=== PATIENT | male | born 1990 | race Caucasian/White ===

== ENCOUNTER → 2019-01-18 | Outpatient (CLI) | payer OTHER ==
--- NOTE | 2019-01-18 15:11 | XR ---
EXAMINATION TYPE: XR shoulder complete RT DATE OF EXAM: 01/18/2019 CLINICAL HISTORY: Pain after injury. TECHNIQUE: Three views of the right shoulder are obtained. COMPARISON: None. FINDINGS: There is no acute fracture/dislocation evident in the right shoulder. The acromioclavicul ar and glenohumeral joint spaces appear within normal limits. The visualized ribs are intact and unr emarkable. IMPRESSION: There is no acute fracture or dislocation in the right shoulder.
== END | disposition home or self-care (01) ==
LOC: RADXRMAIN 14:32
PROVIDERS: ATTEND Emergency Medicine
DX: S46.011A Strain of muscle(s) and tendon(s) of the rotator cuff of right shoulder, initial encounter (principal)

== ENCOUNTER 2021-10-12 04:17 | Emergency (ER) | payer BC ==
[2021-10-12 04:32] VITALS: BP 129/85; PULSE 95; RESP 18; TEMP 98
[2021-10-12] MEDS ORDERED: LIDOCAINE 1% INJ 10MG/ML (5 ML VIAL-PF) SQ STA (05:03)
--- NOTE | 2021-10-12 05:04 | ED ---
Wound/Laceration HPI - General Chief Complaint: Wound/Laceration Stated Complaint: Head injury Time Seen by Provider: 10/12/21 04:57 Source: patient Mode of arrival: ambulatory - History of Present Illness Initial Comments: 's patient is 30-year-old man who presents with complaint of laceration to the left brow. The patient states she had been drinking earlier. He lost his ba anderson and fell. His brow struck the edge of a chair resulting in laceration. He states that his tetanus status is up-to-date. He is not having any symptoms related to fall. No headache, loss consciousness, change in vision or other symptoms. Onset/Timin -: hour(s) Location: face Place: other Patient Tetanus UTD: Yes Context: accidental Associated Symptoms: none - Related Data Allergies Allergy/AdvReac Type Severity Reaction Status Date / Time No Known Allergies Allergy Verified 10/12/21 04:32 Review of Systems ROS Statement: Those systems with pertinent positive or pertinent negative responses have been documented in the HPI. ROS Other: All systems not noted in ROS Statement are negative. Constitutional: Denies: fever Eyes: Denies: eye pain, vision change ENT: Denies: epistaxis Gastrointestinal: Denies: nausea, vomiting Neurological: Denies: headache, weakness, numbness, paresthesias Hematological/Lymphatic: Denies: easy bleeding Past Medical History Past Medical History: No Reported History History of Any Multi-Drug Resistant Organisms: None Reported Past Surgical History: No Surgical Hx Reported Past Psychological History: ADD/ADHD Smoking Status: Current every day smoker Past Alcohol Use History: Occasional Past Drug Use History: None Reported General Exam General appearance: alert, in no apparent distress Head exam: Present: atraumatic, normocephalic Eye exam: Present: PERRL, EOMI. Absent: scleral icterus, conjunctival injection, nystagmus, periorbital swelling, periorbital tenderness Pupils: Present: other (Laceration to left brow proximally 4 cm.) Neck exam: Present: normal inspection, full ROM. Absent: tenderness Neurological exam: Present: alert, oriented X3, CN II-XII intact, normal gait. Absent: motor sensory deficit Skin exam: Present: warm, dry, normal color. Absent: rash Course Vital Signs 10/12/21 04:23 Temperature 98 F Pulse Rate 95 Respiratory 18 Rate Blood Pressure 129/85 O2 Sat by Pulse 99 Oximetry Procedures - Laceration Laceration #1 Consent Obtained: verbal consent Indication: laceration Site: face Size (cm): 4 Description: linear Depth: simple, single layer Anesthetic Used: lidocaine 1% Anesthesia Technique: local infiltration Amount (mls): 3 Type of Sutures: nylon Size of Sutures: 6-0 Number of Sutures: 5 Technique: simple, interrupted Patient Tolerated Procedure: well, no complications Disposition Clinical Impression: Laceration Disposition: HOME SELF-CARE Condition: Good Instructions (If sedation given, give patient instructions): Laceration (ED) Is patient prescribed a controlled substance at d/c from ED?: No Referrals: Jevon Benson MD [Primary Care Provider] - 1-2 days
[2021-10-12] MEDS ORDERED: BACITRACIN OINT 1 EACH PACKET TOPICAL ONE (05:31)
== END 2021-10-12 05:47 | disposition home or self-care (01) ==
LOC: EC 04:17
DX: S01.112A Laceration without foreign body of left eyelid and periocular area, initial encounter (principal); F17.200 Nicotine dependence, unspecified, uncomplicated; W01.190A Fall on same level from slipping, tripping and stumbling with subsequent striking against furniture, initial encounter
CPT/HCPCS: 12013; 99283; J2001

== ENCOUNTER 2023-06-04 15:13 | Emergency (ER) | payer OTHER, BC ==
--- NOTE | 2023-06-04 15:37 | ED ---
General Adult HPI - General Source: patient, RN notes reviewed Mode of arrival: ambulatory Limitations: no limitations <Tereso Aden - Last Filed: 06/04/23 15:36> - General Source: patient, RN notes reviewed, old records reviewed <Carlos Gilbert - Last Filed: 06/04/23 23:54> - General Stated complaint: back pain-[facility] Time Seen by Provider: 06/04/23 15:36 - History of Present Illness Initial comments: 32-year-old male presents emergency Department which low back pain. Patient was sent over from [facility] for evaluation of his back pain. He states his started after twisting and moving some material at work. Patient states his pain areas on his left leg. Patient states that he has no loss control of bowel, bladder and incontinence or retention. Patient denies any prior history of back pain. (Tereso Aden) Patient was a 32-year-old male presents from his apartment when her back pain. Complaining of left lower back pain, with radiation down the posterior aspect of the left leg. Endorses intermittent numbness as well as what appears to be dropfoot syndrome on the left side. Symptoms have been more prominent over the last 3-4 days. He lifted something that was 200 pounds at work 3 days ago and has had symptoms since. Denies any saddle anesthesias or paresthesias. Denies any paralysis of lower extremity is. Denies any urinary or bowel incontinence or retention. His no other acute complaints. Presents for further evaluation. (Carlos Gilbert) - Related Data Allergies Allergy/AdvReac Type Severity Reaction Status Date / Time No Known Allergies Allergy Verified 06/04/23 15:43 Review of Systems ROS Other: All systems not noted in ROS Statement are negative. <Tereso Aden - Last Filed: 06/04/23 15:36> ROS Other: All systems not noted in ROS Statement are negative. <Carlos Gilbert - Last Filed: 06/04/23 23:54> ROS Statement: Those systems with pertinent positive or pertinent negative responses have been documented in the HPI. Review of Systems: CONST: Denies fever EYES: Denies blurry vision ENT: Denies nasal congestion C/V: Denies Chest pain RESP: Denies shortness of breath GI: Denies abdominal pain : Denies dysuria SKIN: Denies rash. MSK: Endorses Back pain NEURO: Denies headache (Carlos Gilbert) Past Medical History Past Medical History: No Reported History History of Any Multi-Drug Resistant Organisms: None Reported Past Surgical History: No Surgical Hx Reported Past Psychological History: ADD/ADHD Smoking Status: Current every day smoker Past Alcohol Use History: Occasional Past Drug Use History: None Reported <Tereso Aden - Last Filed: 06/04/23 15:36> General Exam <Tereso Aden - Last Filed: 06/04/23 15:36> <Carlos Gilbert - Last Filed: 06/04/23 23:54> - General Exam Comments Initial Comments: Visual Physical Exam Vital signs reviewed General: Well-appearing, nontoxic, no acute distress. Head: Normocephalic, atraumatic Eyes: PERRLA, EOMI ENT: Airway patent Chest: Nonlabored breathing Skin: No visual rash, normal skin tone Neuro: Alert and oriented 3 Musculoskeletal: No gross abnormalities (Tereso Aden) General: Appears in no acute distress. HEAD: Normal with no signs of head trauma. EYES: PERRLA, EOMI, conjunctiva normal, no discharge. ENT: Hearing grossly intact, normal oropharynx. RESPIRATORY: Clear breath sounds bilaterally. No wheezes, rales, or rhonchi. C/V: Regular rate and rhythm. S1 and S2 auscultated, peripheral pulses 2+ and intact throughout ABD: Abd is soft, nontender, nondistended EXT: Normal range of motion, no obvious deformity. Mild tenderness palpation of the left lower lumbar paraspinal muscles. No focal midline lumbar, thoracic, cervical spine tenderness to palpation. SKIN: No rashes or lesions observed on exposed skin. NEURO: Alert and oriented x 4. Cranial nerves II-XII intact. Patient does have dropfoot of the left lower extremity but no obvious focal findings otherwise. (Carlos Gilbert) Course Vital Signs 06/04/23 15:38 Temperature 97.6 F Pulse Rate 88 Respiratory 17 Rate Blood Pressure 139/83 O2 Sat by Pulse 98 Oximetry Medical Decision Making <Tereso Aden - Last Filed: 06/04/23 15:36> <Carlos Gilbert - Last Filed: 06/04/23 23:54> - Medical Decision Making I completed the quick note portion of this chart signed Tereso Aden PA-C (Tereso Aden) Was pt. sent in by a medical professional or institution (TOM Jarrell, DIRECTOR OF GOVERNMENT SALES, urgent care, hospital, or usp...) When possible be specific @ -No Did you speak to anyone other than the patient for history (EMS, parent, family, police, friend...)? What history was obtained from this source @ -No Did you review nursing and triage notes (agree or disagree)? Why? @ -I reviewed and agree with nursing and triage notes Were old charts reviewed (outside hosp., previous admission, EMS record, old EKG, old radiological studies, urgent care reports/EKG's, usp records)? Report findings @ -No old charts were reviewed Differential Diagnosis (chest pain, altered mental status, abdominal pain women, abdominal pain men, vaginal bleeding, weakness, fever, dyspnea, syncope, headache, dizziness, GI bleed, back pain, seizure, CVA, palpatations, mental health, musculoskeletal)? @ -Differential Musculoskeletal Muscular strain, contusion, ligament sprain, fracture, arthritis, septic arthritis, bursitis, cellulitis, muscle spasm, nerve compression, DVT, arterial occlusion, herpes zoster, electrolyte abnormality, tumor.... This is not meant to be in all inclusive list EKG interpreted by me (3pts min.). @ -None done X-rays interpreted by me (1pt min.). @ -None done CT interpreted by me (1pt min.). @ -CT of the lumbar spine reveals degenerative changes with left neural foraminal stenosis and right neural foraminal stenosis. Radiology also states there is some canal stenosis as well. U/S interpreted by me (1pt. min.). @ -None done What testing was considered but not performed or refused? (CT, X-rays, U/S, labs)? Why? @ -None What meds were considered but not given or refused? Why? @ -Offered analgesia medications: Patient did accept a dose of steroid and Naprosyn. Did you discuss the management of the patient with other professionals (professionals i.e. TOM Jarrell, DIRECTOR OF GOVERNMENT SALES, lab, RT, psych nurse, long term care social worker, mercantile agent, teacher, bomb squad officer, case specialist)? Give summary @ -No Was smoking cessation discussed for >3mins.? @ -No Was critical care preformed (if so, how long)? @ -No Were there social determinants of health that impacted care today? How? (Homelessness, low income, unemployed, alcoholism, drug addiction, transportation, low edu. Level, literacy, decrease access to med. care, assisted, rehab)? @ -No Was there de-escalation of care discussed even if they declined (Discuss DNR or withdrawal of care, Hospice)? DNR status @ -No What co-morbidities impacted this encounter? (DM, HTN, Smoking, COPD, CAD, Cancer, CVA, ARF, Chemo, Hep., AIDS, mental health diagnosis, sleep apnea, morbid obesity)? @ -None Was patient admitted / discharged? Hospital course, mention meds given and route, prescriptions, significant lab abnormalities, going to OR and other pertinent info. @ -Based on the patient's presentation and physical exam, presents with back pain. Onset at work after lifting a heavy object. Patient does have dropfoot on left lower extremity. Symptoms is been present for multiple days. No red flag symptoms suggestive of cauda equina. I'm concerned for possible peripheral nerve compression. I did recommend CT imaging of the lumbar spine which he accepted. He will see if the dose of steroid and a pain med for pain. He was in agreement this plan. Vital signs are within acceptable limits. CT imaging does show areas of foraminal stenosis suggestive of peripheral nerve compression. I did discuss this with the patient. Recommended follow-up with neurology or the dropfoot. He was in agreement this plan. He will be given a work note. He was given neurology follow-up. He was in agreement with this plan. I instructed the patient to follow up with their PCP in the next 1-3 days. I provided contact information for follow up with neurology. I explained that the patient should return to the emergency department if they experience any worsening symptoms. Strict return precautions were discussed with the patient. The patient expressed understanding of these instructions. I answered all questions that the patient had. The patient was discharged home in good condition with their prescriptions and follow up information. Undiagnosed new problem with uncertain prognosis? @ -No Drug Therapy requiring intensive monitoring for toxicity (Heparin, Nitro, Insulin, Cardizem)? @ -No Were any procedures done? @ -No Diagnosis/symptom? @ -Pain, left foot drop, left sciatica Acute, or Chronic, or Acute on Chronic? @ -Acute Uncomplicated (without systemic symptoms) or Complicated (systemic symptoms)? @ -Complicated Side effects of treatment? @ -No Exacerbation, Progression, or Severe Exacerbation? @ -No Poses a threat to life or bodily function? How? (Chest pain, USA, CT, pneumonia, PE, COPD, DKA, ARF, appy, cholecystitis, CVA, Diverticulitis, Homicidal, Suicidal, threat to staff... and all critical care pts) @ -No (Carlos Gilbert) Disposition <Tereso Aden - Last Filed: 06/04/23 15:36> Is patient prescribed a controlled substance at d/c from ED?: No Time of Disposition: 19:41 <Carlos Gilbert - Last Filed: 06/04/23 23:54> Clinical Impression: Back pain, Sciatica, Foot drop, left Disposition: HOME SELF-CARE Condition: Fair Instructions (If sedation given, give patient instructions): Acute Low Back Pain (ED) Referrals: Jevon Benson MD [Primary Care Provider] - 1-2 days Jayne Coffman MD [REFERRING] - 1-2 days
[2023-06-04 15:46] VITALS: BP 139/83; PULSE 88; RESP 17; TEMP 97.6
[2023-06-04] MEDS ORDERED: NAPROXEN 250 MG TAB PO STA (16:51)
[2023-06-04] MEDS ORDERED: dexAMETHasone 2 MG TAB PO STA (16:51)
--- NOTE | 2023-06-04 19:12 | CT ---
EXAMINATION TYPE: CT lumbar spine wo con CT DLP: 1004.2 mGycm, Automated exposure control for dose reduction was used. DATE OF EXAM: 06/04/2023 5:13 PM COMPARISON: . CLINICAL INDICATION:Male, 32 years old with history of lumbar pain, left drop foot, sciatica left; PH H, back pain following heavy lifting TECHNIQUE: Multiple axial images were obtained from the midportion of T11 through the sacroiliac santos nts. Soft tissue and bone windows in coronal and sagittal planes were obtained and reviewed. 3-D ref ormats of the bones were created on a separate workstation and submitted for review. Contrast used: mL of , none. Oral contrast used: none. FINDINGS: Osseous mineralization appears appropriate. There are 5 lumbar-type vertebral bodies. Straightening o f the normal lumbar lordosis without significant listhesis. Mild levoscoliosis of the lumbar spine ce ntered at L2. Vertebral body heights are preserved, there is no evidence of acute fracture lucency. No lytic/blasti c lesions. There is generally mild degenerative change of the lumbar spine, greatest in the lower lumbar region as below. Spinal canal and contents are not well assessed by a noncontrast CT, and if there is remain ing concern could be further evaluated with nonemergent MRI. At L1-L2, there is small posterior disc bulge. Minimal facet arthrosis. Spinal canal and neural dawn fallon appear patent. At L2-L3, there is small posterior disc bulge. Minimal facet arthrosis. Spinal canal and neural dawn fallon appear patent. At L3-L4, there is mild to moderate posterior disc osteophyte complex, mild facet arthrosis and ligam entum flavum thickening resulting in mild canal and neural foraminal stenoses. At L4-L5, there is mild to moderate posterior disc osteophyte complex, mild to moderate facet arthros is and ligamentum flavum thickening resulting in mild to moderate canal and neural foraminal stenoses . At L5-S1, there is disc space narrowing with vacuum disc phenomenon and a moderate size posterior dis c osteophyte complex with somewhat beaklike configuration of osteophytic bone ending posteriorly cent rally into the canal and there is a ridge of osteophytic bone which extends into the left neural fora men. In combination with mild/moderate facet arthropathy, there is moderate canal stenosis, moderate to severe left neural foraminal stenosis, and moderate right neural foraminal stenosis. Other: Visualized paraspinous soft tissues show no discrete abnormality. Visualized upper sacrum is i ntact. Minimal degenerative change of the left SI joint with early osseous bridge formation. IMPRESSION: 1. No acute osseous abnormality in the lumbar spine. 2. Generally mild degenerative changes of the lumbar spine, however greatest at L5-S1 where there is moderate canal stenosis, moderate to severe left neural foraminal stenosis, and moderate right neura l foraminal stenosis.
== END 2023-06-04 19:51 | disposition home or self-care (01) ==
LOC: EC 15:13
DX: M21.372 Foot drop, left foot (principal); M54.42 Lumbago with sciatica, left side; F17.200 Nicotine dependence, unspecified, uncomplicated
CPT/HCPCS: 72131; 99283; J8540

== ENCOUNTER → 2023-06-22 | Outpatient (CLI) | payer OTHER ==
--- NOTE | 2023-06-22 17:17 | MR ---
EXAMINATION TYPE: MR lumbar spine wo con DATE OF EXAM: 06/22/2023 11:51 AM CLINICAL INDICATION:Male, 32 years old with history of M54.50; PHH, Lower back pain, LLE radiculopath y. Lifting injury. COMPARISON: None TECHNIQUE: Multi planar, multi sequence imaging was performed utilizing: T1-weighted, T2-weighted, a nd turbo inversion recovery imaging of the lumbar spine. IV Contrast: None (None if empty) FINDINGS: Alignment: The lumbar vertebral bodies have preserved heights and alignment. Cord: The conus medullaris and the distal spinal cord appear unremarkable with regards to their signa l intensity and morphology. Bones/Discs: Mild degeneration changes throughout the spine with osteophyte formation and facet joint arthropathy. Intervertebral disc signal is maintained. T12-L1: No evidence of significant spinal canal stenosis or neural foraminal stenosis. L1-L2: No evidence of significant spinal canal stenosis. Facet joint arthropathy mild bilateral neura l foraminal stenosis. L2-L3: No evidence of significant spinal canal stenosis. Facet joint arthropathy mild bilateral neura l foraminal stenosis. L3-L4: Disc bulge and facet joint arthropathy result in mild spinal canal and moderate bilateral neur al foraminal stenosis. L4-L5: Disc bulge and facet joint arthropathy result in mild spinal canal and moderate to severe bila teral neural foraminal stenosis. Left exiting nerve slightly displaced. Facet joint on series 201 flavio ge 4 L5-S1: The disc is rounded posterior morphology without significant spinal canal stenosis. Facet join t arthropathy with severe bilateral neural foraminal stenosis. No significant spinal canal or neural foraminal stenosis in the remainder of the visualized levels. Other findings: None. IMPRESSION: No definitive evidence of disc herniation or significant spinal canal stenosis. Multilevel disc degeneration with associated osteoarthritic changes. Neural foraminal stenosis worse at L4-L5 and L5-S1 with severe L5-S1 and moderate to severe L4-L5. The L4 vertebral 5 exiting nerve a nd slightly displaced the neural foramen.
== END | disposition home or self-care (01) ==
LOC: RADMRIMAIN 11:00
PROVIDERS: ATTEND Orthopaedic Surgery
DX: M51.16 Intervertebral disc disorders with radiculopathy, lumbar region (principal); M47.26 Other spondylosis with radiculopathy, lumbar region; M99.73 Connective tissue and disc stenosis of intervertebral foramina of lumbar region
CPT/HCPCS: 72148

== ENCOUNTER → 2023-09-14 | Outpatient (CLI) | payer BC | END | disposition home or self-care (01) | LOC: LABPAT 08:53 | PROVIDERS: ATTEND Orthopaedic Surgery | DX: Z01.812 Encounter for preprocedural laboratory examination (principal); Z22.322 Carrier or suspected carrier of Methicillin resistant Staphylococcus aureus; M48.061 Spinal stenosis, lumbar region without neurogenic claudication; M54.16 Radiculopathy, lumbar region | CPT/HCPCS: 36415; 86850; 86900; 86901; 87070 ==

== ENCOUNTER → 2023-09-16 | Outpatient (CLI) | payer OTHER ==
--- NOTE | 2023-09-16 12:06 | XR ---
EXAMINATION TYPE: XR chest 2V DATE OF EXAM: 09/16/2023 11:38 AM CLINICAL INDICATION:Male, 32 years old with history of Z01.818 ENCOUNTER FOR OTHER PREPROCEDURAL EXAM INAT; COMPARISON: Chest radiographs from TECHNIQUE: XR chest 2V Frontal and lateral views of the chest. FINDINGS: Lungs/Pleura: There is no evidence of pleural effusion, focal consolidation, or pneumothorax. Pulmonary vascularity: Unremarkable. Heart/mediastinum: Cardiomediastinal silhouette is unremarkable. Musculoskeletal: No acute osseous pathology. IMPRESSION: No acute cardiopulmonary disease/process.
== END | disposition home or self-care (01) ==
LOC: RADXRMAIN 11:24
PROVIDERS: ATTEND Pediatrics
DX: Z01.818 Encounter for other preprocedural examination (principal)
CPT/HCPCS: 71046

== ENCOUNTER 2023-09-21 05:45 | Inpatient (IN) | payer BC, OTHER ==
[2023-09-16 16:51] VITALS: BMI 29.7
--- NOTE | 2023-09-20 18:25 | P.HPOR ---
History of Present Illness H&P Date: 09/14/23 Chief Complaint: LLE foot drop, weakness, LLE Radic. 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 It is my impression that the patient has a diagnosis of. 1. L4-S1 spondylosis with stenosis, severe 2. Left foot drop 3. Left lower extremity radiculopathy I outlined the natural course history without intervention and various interventional options. - The patient's gearcase assembler was present during the duration of the patient's visit today. The patient's surgical treatment plan was discussed in detail with the patient's gearcase assembler today. Spine Surgery Risk Review Mr. Henry is presenting for evaluation of low back and left lower extremity pain, left lower extremity numbness, tingling, and weakness. It was my pleasure to have seen and examined Mr. Henry. In our visit today we have had a chance to go over subjective complaints, physical examination findings and treatments including the natural course hist ory without intervention and various interventional options. The patients imaging demonstrates: [facility] Lumbar Spine: Images were re-reviewed with the patient today. This demonstrates sever spondylotic changes at L4-5 and L5-S1 with severe disc collapse, large HNP at each level and stenosis related to these changes. Central and foraminal stenosis is moderate to severe b/l. There is facet arthrosis with bogginess noted with fluid in facet joints at both of these levels. At L3-4 there is beginning spondylosis as well which is not as bad as the bottom two levels, however, is moderate already. There is No spondylosis at L2-3 or L1-2 with good disc height, hydration and no facet arthrosis or stenosis noted. This correlates with his CT scan which shows vacuum discs at L4-5 and L5-S1 with large HNP and stenosis as well as facet arthrosis. NO fractures or lesions noted. XRay Lumbar Multiview (AP, Lateral, Flexion, Extension) with AP pelvis; [address] [facility] on 06/15/23 of Lumbar Spine: Images were re-reviewed with the patient today. Images demonstrates L5-S1 disc height loss, asymmetrical to the left side. There is facet arthrosis b/l which is mild. No fracture. No lesions. Some spo ndylosis noted L4-S1 as well. MRI will better image issues. On physical exam, Mr. Henry demonstrates: A continued sharp, shooting pain throughout the low back that radiates down into the left lower extremity. He states his left leg pain is associated with continued numbness and tingling. He notes worsening drop foot symptoms on the left, as his ability to plantar and dorsiflex the left ankle has continued to decrease. He notes increased difficulty with walking due to left leg weakness. He notes his work duties have become very difficult for him to complete due to his worsening symptoms. He notes that his symptoms worsen after all activity. I have explained to the patient that as their condition progresses it will cause further neurological deficits and eventual paralysis. Based on the patients imaging, physical exam, and the rapid progression and disabling nature of their symptoms, at this time I recommend surgery in the form of a: Stage I: L4-5 and L5-S1 Anterior lumbar interbody fusion. Stage II: (Same day) L4-S1 posteriolatearl stabilized fusion with decompression. I discussed the risk and benefits of this procedure at length with Mr. Henry. This will be a combined anterior and posterior procedure, staged the same day. I will work with Dr. Cruz of vascular surgery for the approach surgeon on the first stage and the second stage will be done posterior by just myself. The patient has seen and sonculted with Dr. Cruz in office and discussed the risks that are specific to this procedure with Dr. Cruz and he is comfortable with these. I have discused them again with the patient as outlinee below and he agrees to continue. The patient agreed to considered pursuing the procedure above mentioned. Prior to surgery, she should follow up with her PCP (Cardio, ID, IM etc) for clearance. Questions were invited and answered, and the patient wishes to proceed as outlined below. Currently, I am recommendin.Stage I: L4-5 and L5-S1 Anterior lumbar interbody fusion. Stage II: (Same day) L4-S1 posteriolatearl stabilized fusion with decompression. 2.Review of surgical risks and benefits as well as an educational packet on the proposed surgical procedure. Risks: All surgical procedures come with inherent risks, including those related to positioning, anesthesia, intraoperative findings, and postoperative complications. It is important to understand that surgery does not come with any guarantee of a successful outcome as complications and adverse events are always possible. The patient was given a handout in office today discussing the surgical procedure and risks associated with the intervention, both of which were discussed with the patient. These risks include but are not limited to the following: * Experiencing same, different or even worse symptoms in back, neck, arms, or legs compared to before surgery. Requiring further surgery or other forms of treatment presently or at some time in the future at same or other levels of the intended spine surgery. On an extreme but fortunately relatively rare basis severe complication such as blindness, stroke, heart attack, temporary and/or permanent nerve injury, paralysis, coma, or may occur, sometimes without known explanation. Surgical complications may include but are not limited to risk of infection, fluid accumulation in the surgical dissection site, including a seroma or hematoma, that requires additional surgery, wound drainage, bleeding, new numbness or weakness, vision changes/loss, spinal fluid leakage, non-healing and/or infected incision, headaches, difficulty or inability to swallow, hoarseness, hemopneumothorax, pneumothorax, impotence, retrograde ejaculation, vaginal dryness; injury to nerves, spinal cord, blood vessels, lymphatics or other vital organs (i.e., bowel injury, injury to the great vessels); heterotopic bone formation; complications related to the hardware such as screws, rods, cages including misplaced hardware, device failure, instrumentation at the wrong spine level, hardware fracture/breakage, or hardware loosening; vertebral failure of the spinal column above or below the newly placed hardware; retained surgical instrumentations or devices and the ne ed for further surgery. * Medical risks of the planned spine surgery include but are not limited to generalized Infections to the whole body or local areas outside of the surgical site (sepsis), heart attack, bleeding, anaphylaxis, meningitis, seizure, epilepsy, hearing loss, burn whitfield, laceration of the head or other areas of the body, bruising, hypersensitivity of the skin, bladder over dist ension; allergic reaction; shoulder injury related to positioning; fat, blood and air clots to other areas of the body like heart, lungs, brain; failure of internal organs such as lungs, kidneys, liver and excessive bleeding. If blood transfusions are necessary, note that transfusions may cause intolerance reactions such as anaphylaxis or other complex reactions. Despite best efforts, the results of spine surgery might not heal in terms of bone, soft tissues such as skin, fascia, ligaments, and joints. Additionally, in order to achieve best possible results, spine surgery may be carried out beyond the initially planned levels and involve decompression, fusion including insertion of hardware at levels other than the original intended area of surgical interest change some portions of the procedure in order to ensure the best possible outcomes. With spine surgery and spinal fusion, there are different off label uses of instrumentation (devices, implants and hardware) as well as biological substances (bone morphogenic proteins, demineralized bone matrix) as well as using extra bone from allograft sources (i.e. cadaver bone) or autograft (iliac crest bone, ribs, or the spine itself). The patient has been given information about these practices and their inherent risks and benefits. [facility] is an educational center that serves as a training facility for neurosurgical and orthopedic [employer] and Nursing students. Physician assistants are medically trained surgical providers who function in the outpatient, inpatient, and operating room setting under the direct supervision of the attending surgeon. [facility] has multiple operating rooms with single and overlapping rooms running daily. They currently function under the required guidelines as produced by the [facility] Finance Committee with regards to the overlapping rooms and will continue to comply with changes to this policy as they occur. The requirements include and are complied with as follows: (1) the critical portions of the overlapping rooms will not occur at the same time, (2) the attending physician will be physically present during the critical portions of the procedure and immediately available during the entire case, and (3) a back-up attending is designated should the primary attending not be immediately available. The patient has had a chance to review all the listed information, has been given print outs detailing this information, and has had all his/her questions answered to their satisfaction. It was my pleasure to have seen and examined Mr. Henry. In our visit today we have had a chance to go over my understanding of our patient's current condition, the natural course history without intervention and various interventional options. Questions were invited and answered, and the patient wishes to proceed as outlined above. I have seen and examined the patient for 25 minutes and we have spent more than 50% of the time in repeat and detailed counseling about the patient's condition, its natural course history with out and as much as can be predicted with surgery and re-review of various surgical treatment options. In conclusion, Mr. Henry requested we proceed with the above suggested surgery and are willing to accept risks and limitations of the suggested surgery as nature of the disease process and our best attempts at treatment for the condition. FOLLOW UP: Post Procedure PLAN AT NEXT VISIT: AP/LAT x-rays of the Lumbar Spine PATIENT EDUCATION: Medications Reviewed: YES In our visit today Mr. Henry and I have had a chance to go over my understanding of the patient's current condition, the natural course history without intervention and various interventional options. Questions were invited and answered, and the patient wishes to proceed as outlined above. I will be sure to keep you updated after Mr. Henry returns here for further follow-up. Thank you again for your referral. Please do not hesitate to contact me if you have any further questions. Signed and authenticated by: [facility] [address] [place] [address] This message is confidential, intended only for the named recipient(s) and may contain information that is privileged or exempt from disclosure under applicable law. If you are not the intended recipient(s), you are notified that the dissemination, distribution or copying of this information is strictly prohibited. If you received this message in error, please notify the sender then delete this message. Past Medical History Past Medical History: No Reported History, Hypertension, Osteoarthritis (OA) Additional Past Medical History / Comment(s): Varicose veins. History of Any Multi-Drug Resistant Organisms: None Reported Past Surgical History: No Surgical Hx Reported Additional Past Surgical History / Comment(s): Durand teeth. Past Anesthesia/Blood Transfusion Reactions: No Reported Reaction Smoking Status: Current every day smoker - Past Family History Mother Family Medical History: No Reported History Medications and Allergies Allergies Allergy/AdvReac Type Severity Reaction Status Date / Time No Known Allergies Allergy Verified 09/16/23 16:00 Physical Examination Osteopathic Statement: *. No significant issues noted on an osteopathic structural exam other than those noted in the History and Physical/Consult.
[~2023-09-21 05:45] MED LIST: ONDANSETRON 4 MG/2 ML VIAL IVP PRN; TRANEXAMIC 1,000 MG/100ML-NACL 1,000 MG in SALINE 1 100ML.BAG IVPB PRN
[2023-09-21] MEDS ORDERED: MIDAZOLAM 2 MG/2 ML VIAL IV PRN (06:12)
[2023-09-21] MEDS ORDERED: LIDOCAINE 1% (10MG/ML) FOR IV START INTRADERMA PRN (06:12)
[2023-09-21] MEDS: LACTATED RINGERS 1,000 ML IV ONE ×5 (06:16→13:10)
[2023-09-21] MEDS: MIDAZOLAM 2 MG/2 ML VIAL IVP ONE ×2 (07:04→07:08)
[2023-09-21] MEDS: ACETAMINOPHEN TAB 500 MG TAB PO PRN (07:26)
[2023-09-21] MEDS: DEXAMETHASONE SOD PHOSPHATE 4 MG/ML 1 ML VIAL IV ONE (07:27)
[2023-09-21] MEDS: ONDANSETRON 4 MG/2 ML VIAL IVP ONE (07:27)
[2023-09-21] MEDS: GABAPENTIN 300 MG CAP PO PRN (07:27)
[2023-09-21] MEDS ORDERED: SUCCINYLCHOLINE CHLORIDE 200 MG/10 ML VIAL IV ONE (07:40)
[2023-09-21] MEDS ORDERED: HYDROmorphone (PF) 1 MG/ML ONE (07:40)
[2023-09-21] MEDS ORDERED: GLYCOPYRROLATE 0.2 MG/ML 2 ML VIAL ONE (07:40)
[2023-09-21] MEDS ORDERED: ONDANSETRON 4 MG/2 ML VIAL ONE (07:40)
[2023-09-21] MEDS ORDERED: FUROSEMIDE 10 MG/ML 2 ML VIAL ONE (07:40)
[2023-09-21] MEDS ORDERED: WATER FOR INJECTION, STERILE 10 ML VIAL IV ONE (07:40)
[2023-09-21] MEDS ORDERED: fentaNYL (PF) 50 MCG/ML 2 ML AMP ONE (07:40)
[2023-09-21] MEDS ORDERED: NEOSTIGMINE 1 MG/ML 10 ML VIAL ONE (07:40)
[2023-09-21] MEDS ORDERED: TRANEXAMIC 1,000 MG/100ML-NACL PREMIX BAG ONE (07:40)
[2023-09-21] MEDS ORDERED: PHENYLEPHRINE 10 MG/ML VIAL ONE (07:40)
[2023-09-21] MEDS ORDERED: VASOPRESSIN 20 UNIT/ML 1 ML VIAL ONE (07:40)
[2023-09-21] MEDS ORDERED: KETAMINE HCL IN 0.9 % NACL 50 MG/5 ML SYRINGE ONE (07:40)
[2023-09-21] MEDS ORDERED: LIDOCAINE 1% INJ 10MG/ML (20 ML MDV) ONE (07:40)
[2023-09-21] MEDS ORDERED: ALBUMIN HUMAN 5% (25gm) 500 ML VIAL IVPB ONE (07:40)
[2023-09-21] MEDS ORDERED: PROPOFOL 10 MG/ML 20 ML VIAL IV ONE (07:40)
[2023-09-21] MEDS ORDERED: ROCURONIUM 10 MG/ML (5 ML VIAL) IV ONE (07:40)
[2023-09-21] MEDS ORDERED: MIDAZOLAM 2 MG/2 ML VIAL ONE (07:40)
[2023-09-21] MEDS: THROMBIN (BOVINE) 5,000 UNIT VIAL TOPICAL ONE (08:49)
--- NOTE | 2023-09-21 11:30 | P.ANPRN ---
Procedure Note - Anesthesia - Invasive Line Right Arterial Line Time Out Performed: Yes Date of Procedure: 09/21/23 Time of Procedure: 07:12 Location of Patient: PreOp Preparation: Sterile Prep, Sterile Dressing Arterial Line Location: Radial Ultrasound Used: No Purpose - Visualization and Identification of Vasculature: No Image Stored and Saved: No Narrative: Invasive line placement per sterile protocol utilized.
--- NOTE | 2023-09-21 12:26 | P.ANPRN ---
Procedure Note - Anesthesia - Invasive Line Right Central Line Time Out Performed: Yes Date of Procedure: 09/21/23 Time of Procedure: 07:09 Location of Patient: PreOp Preparation: Sterile Prep Central Line Location: Internal Jugular Ultrasound Used: Yes Purpose - Visualization and Identification of Vasculature: Yes Image Stored and Saved: Yes Narrative: Invasive line placement per sterile protocol utilized.
[2023-09-21] MEDS: VANCOMYCIN 1,000 MG VIAL MISCELLANE ONE (13:34)
[2023-09-21] MEDS: ceFAZolin 3,000 MG in SODIUM CHLORIDE 0.9% IRRIGATIO 3,000 ML IRRIGATION ONE (13:34)
[2023-09-21] MEDS: GENTAMICIN 80 MG in SODIUM CHLORIDE 0.9% IRRIGATIO 3,000 ML IRRIGATION ONE (13:34)
[2023-09-21] MEDS ORDERED: SENNOSIDES-DOCUSATE SODIUM 1 EACH TAB PO PRN (14:05)
[2023-09-21] MEDS ORDERED: MAGNESIUM HYDROXIDE 2,400 MG/30 ML CUP PO PRN (14:05)
--- NOTE | 2023-09-21 14:51 | P.OP ---
Date of Procedure: 09/21/23 Preoperative Diagnosis: 1. L5-S1 spondylosis with stenosis 2. L4-5 spondylosis with stenosis 3. L4-S1 HNP with foraminal stenosis 4. LLE weakness with foot drop, acute 5. Low back pain severe 6. s/p work injury 7. Neurogenic claudication Postoperative Diagnosis: 1. L5-S1 spondylosis with stenosis 2. L4-5 spondylosis with stenosis 3. L4-S1 HNP with foraminal stenosis 4. LLE weakness with foot drop, acute 5. Low back pain severe 6. s/p work injury 7. Neurogenic claudication Procedure(s) Performed: Same day two stage procedure Stage I: 1. L5-S1 anterior lumbar interbody fusion 2. L4-5 anterior lumbar interbody fusion 3. Insertion of biomechanical device L4-5 and L5-S1 Stage II: 1. L4-S1 posterolateral instrumented fusion 2. L4-S1 segmental instrumentation 3. Use of Paxer Navigation for screw placement Use of IONM [id number], [id number], [id number], 84800, 78535, 01037, [id number], [id number] Implants: -ISAURA MONTERRAY AL MED 12MM 10 DEG MED DEEP 14MM 15 DEG -ISAURA EVEREST SCREWS AND RODS -AUTOGRAFT, MAGNATOS, BIO4 Anesthesia: GETA Surgeon: Iglesia Smalls (Co-Surgeon case with Dr. Cruz of vascular surgery for Stage I) Respiratory Therapy Instructor #1: Michelet Newell (was present and assisted with all aspects of the case Stage I and Stage II. ) Estimated Blood Loss (ml): 100 (StageI: 25 Stage II: 75) IV fluids (ml): 3,300 Urine output (ml): 600 Pathology: none sent Condition: stable Disposition: PACU Indications for Procedure: Mr. Henry is presenting for evaluation of low back and left lower extremity pain, left lower extremity numbness, tingling, and weakness. It was my pleasure to have seen and examined Mr. Henry. In our visit today we have had a chance to go over subjective complaints, physical examination findings and treatments including the natural course history without intervention and various interventional options. The patients imaging demonstrates: [facility] Lumbar Spine: Images were re-reviewed with the patient today. This demonstrates sever spondylotic changes at L4-5 and L5-S1 with severe disc collapse, large HNP at each level and stenosis related to these changes. Central and foraminal stenosis is moderate to severe b/l. There is facet arthrosis with bogginess noted with fluid in facet joints at both of these levels. At L3-4 there is beginning spondylosis as well which is not as bad as the bottom two levels, however, is moderate already. There is No spondylosis at L2-3 or L1-2 with good disc height, hydration and no facet arthrosis or stenosis noted. This correlates with his CT scan which shows vacuum discs at L4-5 and L5-S1 with large HNP and stenosis as well as facet arthrosis. NO fractures or lesions noted. XRay Lumbar Multiview (AP, Lateral, Flexion, Extension) with AP pelvis; 5 views taken at [facility] on 06/15/23 of Lumbar Spine: Images were re-reviewed with the patient today. Images demonstrates L5-S1 disc height loss, asymmetrical to the left side. There is facet arthrosis b/l which is mild. No fracture. No lesions. Some spondylosis noted L4-S1 as well. MRI will better image issues. On physical exam, Mr. Henry demonstrates: A continued sharp, shooting pain throughout the low back that radiates down into the left lower extremity. He states his left leg pain is associated with continued numbness and tingling. He notes worsening drop foot symptoms on the left, as his ability to plantar and dorsiflex the left ankle has continued to decrease. He notes increased difficulty with walking due to left leg weakness. He notes his work duties have become very difficult for him to complete due to his worsening symptoms. He notes that his symptoms worsen after all activity. I have explained to the patient that as their condition progresses it will cause further neurological deficits and eventual paralysis. Based on the patients imaging, physical exam, and the rapid progression and disabling nature of their symptoms, at this time I recommend surgery in the form of a: Stage I: L4-5 and L5-S1 Anterior lumbar interbody fusion. Stage II: (Same day) L4-S1 posteriolatearl stabilized fusion with decompression. I discussed the risk and benefits of this procedure at length with Mr. Henry. This will be a combined anterior and posterior procedure, staged the same day. I will work with Dr. Cruz of vascular surgery for the approach surgeon on the first stage and the second stage will be done posterior by just myself. The patient has seen and sonculted with Dr. Cruz in office and discussed the risks that are specific to this procedure with Dr. Cruz and he is comfortable with these. I have discused them again with the patient as outlinee below and he agrees to continue. The patient agreed to considered pursuing the procedure above mentioned. Prior to surgery, she should follow up with her PCP (Cardio, ID, IM etc) for clearance. Questions were invited and answered, and the patient wishes to proceed as outlined below. Currently, I am recommendin.Stage I: L4-5 and L5-S1 Anterior lumbar interbody fusion. Stage II: (Same day) L4-S1 posteriolatearl stabilized fusion with decompression. Description of Procedure: STAGE I: L4-S1 ANTERIOR INTERBODY FUSION; STAGE II: L4-S1 WV POSTEROLATERAL INSTRUMENTED FUSION STAGE I: The patient was seen and examined in the preoperative area. All preoperative protocols were followed. Informed consent was obtained, risks and benefits of the procedure were discussed at length. Risks including bleeding infection damage to the surrounding tissue and risk of reoperation were discussed with the patient. Risk of anesthesia up to and including was discussed with the patient. These are outlined in the risk review. They were willing to accept these risks and all the risks of surgery. The patient was given a weight-based dose of antibiotics in the form of 2 g Ancef. The patient was seen and evaluated by the anesthesia team who deemed them fit for surgery. The site was marked, the patient was willing to proceed with the procedure. The patient was transferred to the operative suite by the Department of anesthesia. They were then drifted off to sleep by the department anesthesia and GETA was performed. The patient tolerated this well. Park catheter was placed by nursing staff, a-traumatically. Once confirmation of lines and ventilation the patient was transferred to a flat top sanya table. All bony prominences including wrists, elbows, axilla, chest, hips, and thighs, and feet were padded very well. Special attention was paid to the genitalia, and these were padded accordingly. SCDs were placed on bilateral lower extremities and were connected. Arms were well padded and placed at the patient's side. Once in position, again we confirmed good ventilation capabilities and that lines were running appropriately. The patients abdomen and pelvis were exposed. 1010s were placed outlining the incision site. Standard alcohol was used to clean the incision site and allowed to dry. C-arm was used to localize the L4-S1 region and confirm level for incision which was marked with a skin marker. Operative briefing was performed with all teams and everyone in agreement to proceed. The patient was then prepped and draped in a normal sterile fashion. Timeout was then performed, and all parties agreed with the procedure to be performed. Dr. Cruz then performed anterior retroperitoneal exposure to the lumbar spine via a midline infraubilical incision. I was present and assisted with this portion of the case until exposure was complete. Once L5-S1 region was exposed, we were able to needle localize the disc space on AP and Lateral at L5-S1 and confirm midline as well as excursion. Once this was confirmed. Complete disectomy was done using a annulotomy knife to incise the disc a coe was then run along the endplate to remove disc and cartilage on the inferior L5 an superior S1 endplates. Then a combination of curettes, rongure, kerrison and pituitary were used to remove disc and osteophytes from this level as well as decompression the thecal sac and the foramen b/l at the L5-S1 region. Once this was accomplished and good bleeding endplates were encountered, then trials were placed and AP and Lateral images taken to confirme midline as well as sizing. Once confirmed on AP, then under lateral imaging the space was sized and lrodosed. We then selected the appropriate cage for the L5-S1 region. Rasp of the same size was then passed and further disc and cartilage completely removed. This was done while protecting surrounding structures. Then the disc space was irrigated and further debris removed. Cage was then selected and impacted into position under lateral imaging. Once in place, then screw holes were drilled into S1 and L5 respectively and anterior instrumentation was done of the L5-S1 cage. Screws had good bite and the locking mechanisms were set. meticulous hemostasis done and the wound irrigated. We then proceed to L4-5 region. Anterior exposure was then done to access the L4-[address] Cruz. Once this was accomplished we proceeded with discectomy and arthrodesis anterior at L4-5. This was done in the same fashion as described above. Once discectomy and decompression was done. Trials were placed for lordosis and height. This was accomplished and cage selected. Rasp of the same size was then passed and good bleeding endplates encountered. The space was then irrigated and the cage was impacted into position under lateral images. Before this, we checked AP which confirmed midline. Cage was impacted and had good bite. We then placed anterior instrumentation and screws through the cage at L4-5. All screws had good bite and the locking mechanisms set. The wound was then irrigated with NSS and abx irrigation. Meticulous hemostasis done. The area inspected and there were no injuries and good placement of hardware. Final images confirmed good hardware placement and religion of lordosis and height. The wound was then closed by Dr. Cruz. We then proceeded to stage II of the procedure. The wound was dressed with glue and an opitfoam dressing. STAGE II: The patient was then transferred to their hospital bed and the Trios table was exchanged for the prone version, the patient was then transferred back onto the [facility] prone table atraumatically. All bony prominences including wrists, elbows, axilla, chest, hips, and thighs, and feet were padded very well. Special attention was paid to the genitalia, and these were padded accordingly. SCDs were placed on bilateral lower extremities and were connected. Arms were well padded and placed at the patient's side. Once in position, again we confirmed good ventilation capabilities and that lines were running appropriately. The patients lumbar spine was exposed. 1010s were placed outlining the incision site. Standard alcohol was used to clean the incision site and allowed to dry. C-arm was used to localize the L4-S1 region and confirm level for incision which was marked with a skin marker. Operative briefing was performed with all teams and everyone in agreement to proceed. The patient was then prepped and draped in a normal sterile fashion. Timeout was then performed, and all parties agreed with the procedure to be performed. Skin knicks were then made over the right PSIS for placement of the tracking pins. Pins placed in PSIS and tracker placed. 3D Zhiem spine was then done and registered. Dalton was used to then plan out skin incisions. Incisions made the dissection taken down to the fascia which was split with the fibers. Janes Sylwiaidi was then used to plan screws b/l at L4-S1. Janes gavin was then used to create bar pilot hole for starting point and then drill guide used to drill for screws in the pedicle. Wires were then placed in this void. Once all wires placed, AP and Lateral images confirmed good placement. Perfect scalpal was then used to create path over the wire and screws placed over the wire at all levels. Once scews in place, they were confirmed on AP and Lateral to be in good position. Gavin was then used to decorticate PL gutters and TPs at each level. Titi length was then measured, and rods selected. They were then placed through the MIS tabs, subfascial. These were then locked into place with set screws and final tightened. Titi holders removed and images taken showing good placement of rods good lordosis and religion of height. Tabs were broken off. Wounds were then copiously irrigated with NSS. Gavin used for TP decortication and mixture of MagnatOs, allograft and autograft packed posterolateral. Facia was then closed with 0 Vircyl on a Scorpion suture passer for MIS closure. Deep subq closed with 0 Vicryl. Superficial subq closed with 2-0 Vicryl and skin with edward. Wound edges approximated very well. Wound was then cleaned with alcohol and dried. Wounds dressed with Optifoam dressings. The patient was then transferred off the table back to their hospital bed a- traumatically. They were extubated by the department of anesthesia. They were then transferred to PACU in stable condition having tolerated the procedure with no complications.
[2023-09-21] MEDS: HYDROmorphone 0.5 MG/0.5 ML SYRINGE IVP PRN ×2 (15:04→23:15)
[2023-09-21] MEDS: LACTATED RINGERS 1,000 ML IV SCH (16:17)
[2023-09-21] MEDS: CYCLOBENZAPRINE 5 MG TAB PO PRN (16:22)
[2023-09-21] MEDS: HYDROcodone/APAP 5-325MG 1 EACH TAB PO PRN (16:22)
--- NOTE | 2023-09-21 17:41 | XR ---
EXAMINATION TYPE: XR lumbar spine 2 or 3V, FL guidance operating room DATE OF EXAM: 09/21/2023 Comparison: None Clinical History: 32-year-old male LUMBAR STENOSIS Findings: ANTERIOR AND POSTERIOR LUMBAR STENOSIS WITH GOODMANSON AND CUPPARI. 4722 mGycm2 DAP AND 107 SEC FL TI ME. 7 IMAGES SCANNED AND 15 SENT TO PACS. Impression: Intraoperative fluoroscopy as above.
[2023-09-21] MEDS: ACETAMINOPHEN TAB 325 MG TAB PO SCH (18:26)
--- NOTE | 2023-09-21 20:46 | P.OP ---
Date of Procedure: 09/21/23 Preoperative Diagnosis: 1. L5-S1 spondylosis with stenosis 2. L4-5 spondylosis with stenosis 3. L4-S1 HNP with foraminal stenosis 4. LLE weakness with foot drop, acute 5. Low back pain severe 6. s/p work injury 7. Neurogenic claudication Postoperative Diagnosis: same Procedure(s) Performed: Retroperitoneal exposure for L4-L5 and L5-S1 anterior lumbar interbody fusion Insertion of biomechanical device L4-L5, and L5-S1 Anesthesia: GETA Surgeon: Gilberto Cruz (Co surgeon with Dr. Smalls) Estimated Blood Loss (ml): 20 Pathology: none sent Condition: stable Disposition: PACU Indications for Procedure: 32 year old male with low back and left lower extremity pain, left lower extremity numbness and weakness presents for elective ALIF procedure. Description of Procedure: Patient was brought to the operating room and placed in a supine position after appropriate anesthetic was performed per the anesthesiologist. IV antibiotics were given prior to incision. Park catheter was placed. Preoperative localization of the disc space was carried out with fluoroscopy. The abdomen was prepped and draped in the usual sterile fashion. Timeout was performed in normal fashion with all parties in agreement. A midline incision was then creat ed with a 10 blade scalpel and dissection was carried down through the subcutaneous tissue. Left anterior rectus sheath was located and identified and then incised. The left rectus abdominis muscle was then mobilized from the midline laterally. The retroperitoneum was then entered in the left lower quadrant. Peritoneal contents were then swept toward the midline. A Soila retractor was then placed in the peritoneum was retracted medially. Bipolar cautery was then utilized to free up the soft tissues between the iliac veins. The iliac artery, vein were located and spared. Meticulous dissection was carried around this area and the left iliac vein was retracted laterally to allow for better visualization of the L5-S1 space. Middle sacral vessels were then located and dissected free and were clipped and ligated. Good visualization of the L5-S1 disc space was viewed and confirmed with fluoroscopy. A pin was placed within the disc space which was confirmed on fluoroscopy and shown to be in good position. At that time Dr. Smalls performed a discectomy, and cage placement at the L5-S1 disc level. Please see his dictation for further details. Attention was then placed to the L4-L5 disc space. For exposure of the L4-L5 disc space the approach was along the anterior lateral aspect of the left common iliac artery. The L4-L5 disc space was completely covered with vascular structures coming off the bifurcation of the abdominal aorta and vena cava. Using bipolar electrocautery the soft tissue was released along the lateral border of the left iliac artery and vein to preserve the lymphatic drainage. The lateral branches of the iliac vein were located and iliolumbar and ascending lumbar veins were suture-ligated in normal fashion. The left iliac vein was retracted to the right allowing for better visualization of the L4-L5 disc space. Once good visualization of the L4-L5 disc space was performed the retractors were placed and monitoring of the pulse ox was p erformed of the left lower extremity which remained 100% and had a blunted wave pattern for a small portion of the procedure. Fluoroscopic images were then acquired to confirm appropriate disc level. Once again Dr. Smalls performed the discectomy and cage placement at the L4-L5 disc level. Please see his dictation for the details. Once completed the area was inspected for hemostasis. Hemostasis was ensured. There was no active bleeding or any signs of injury. All retractors were then removed and the incision was closed. The anterior rectus sheath was reapproximated with 2-0 PDS suture in a running fashion. Subcutaneous tissue was reapproximated with 3-0 Vicryl. Skin was closed with 4-0 Monocryl. All sponges and instruments were accounted for. I was present in the room for the entire procedure and assisted Dr. Smalls with his portion of the procedure that included vessel and soft tissue retraction to facilitate implant placement.
[2023-09-21] MEDS: HYDROcodone/APAP 10-325MG 1 EACH TAB PO PRN (21:40)
[2023-09-21] MEDS: GABAPENTIN 300 MG CAP PO SCH (21:41)
--- NOTE | 2023-09-21 23:13 | P.CONS ---
History of Present Illness - Reason for Consult Consult date: 09/21/23 Medical management Requesting physician: Iglesia Smalls - Chief Complaint Lumbar surgery - History of Present Illness This is a 32-year-old patient who follows with Dr. Luis Fernando Benson. On June 02., Patient started on movement 250 pound load. He felt something cracking in his back. When he laid down. He got up he was having severe pain. Since then he has had weakness in the left leg. Numbness below the left knee. Sharp pain shooting down the left leg. Patient also had left lower extremity foot drop. Patient underwent lumbar surgery by Dr. Smalls. Postprocedure patient having pain at the operative site. No nausea vomiting. Review of systems: GEN.: Tired EYES: None HEENT: None NECK: None RESPIRATORY: None CARDIOVASCULAR: None GASTROINTESTINAL: None GENITOURINARY: Park catheter MUSCULOSKELETAL: As above e LYMPHATICS: None HEMATOLOGICAL: None PSYCHIATRY: None NEUROLOGICAL: [As above Past medical history to include: Hypertension, varicose veins, anxiety depression Social history: Lives with 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 Was drinking 6-7 beers a week up till couple of months ago. Smoked a pack a day for about 20 years. Stopped recently. Physical examination: VITAL SIGNS: 98.6, 107, 19, 132.74, 99% room air GENERAL: BMI 28.3, laying in bed awake slightly uncomfortable. EYES: Pupils equal. Conjunctiva kimberly l. HEENT: External appearance of nose and ears normal, oral cavity grossly normal. NECK: JVD not raised; masses not palpable. HEART: First and second heart sounds are normal; no edema. LUNGS: Respiratory rate normal; clear to auscultation. ABDOMEN: Soft, nontender, liver spleen not palpable, no masses palpable. Dressing over the incision site. PSYCH: Alert and oriented x3; mood and affect kimberly l. MUSCULOSKELETAL:No Clubbing/cyanosis;muscles-grossly intact. Dressing over incision site NEUROLOGICAL: Cranial nerves grossly intact; no facial asymmetry, power and sensation grossly intact. LYMPHATICS: No lymph nodes palpable in the axilla and neck INVESTIGATIONS, reviewed in the clinical context: None Assessment plan -Acute low back pain with radiculopathy of the left leg and left foot drop that happened in June 02 while moving a heavy load. Patient has undergone lumbar surgery by Dr. Smalls. Pain control -Essential hypertension Zestril 5 mg a day -Depression anxiety Wellbutrin Care was discussed with the patient and his brother at his bedside. Questions answered. Patient has Venodyne boots for DVT prophylaxis Thank you Dr. Smalls Past Medical History Past Medical History: No Reported History, Hypertension, Osteoarthritis (OA) Additional Past Medical History / Comment(s): Varicose veins. History of Any Multi-Drug Resistant Organisms: None Reported Past Surgical History: No Surgical Hx Reported Additional Past Surgical History / Comment(s): [place] teeth. Past Anesthesia/Blood Transfusion Reactions: No Reported Reaction Past Psychological History: ADD/ADHD, Anxiety, Depression Smoking Status: Current every day smoker Past Alcohol Use History: None Reported Additional Past Alcohol Use History / Comment(s): Smokes 1/4 ppd, started at age 20. Past Drug Use History: None Reported - Past Family History Mother Family Medical History: No Reported History Medications and Allergies Home Medications Medication Instructions Recorded Confirmed Type buPROPion [Wellbutrin] 100 mg PO DAILY 09/21/23 09/21/23 History lisinopriL [Zestril] 5 mg PO DAILY 09/21/23 09/21/23 History Allergies Allergy/AdvReac Type Severity Reaction Status Date / Time No Known Allergies Allergy Verified 09/21/23 06:23 Physical Exam Vitals: Vital Signs Temp Pulse Resp BP Pulse Ox 09/21/23 19:19 98.6 F 107 H 19 132/74 99 09/21/23 18:10 118 H 113/64 97 09/21/23 17:55 111 H 110/63 95 09/21/23 17:40 110 H 123/76 96 09/21/23 17:25 108 H 111/70 95 09/21/23 17:10 112 H 106/65 95 09/21/23 16:55 114 H 120/79 98 09/21/23 16:40 100 114/68 98 09/21/23 16:25 98 118/74 98 09/21/23 16:10 97.5 F L 98 117/77 100 09/21/23 15:30 108 H 17 110/59 100 09/21/23 15:15 102 H 15 120/69 99 09/21/23 14:58 116 H 17 111/58 100 09/21/23 14:42 106 H 17 121/60 100 09/21/23 14:27 105 H 16 107/53 100 09/21/23 14:12 97 F L 110 H 18 118/51 100 09/21/23 07:28 91 16 114/83 98 09/21/23 06:27 97.6 F 94 16 126/79 99 Intake and Output 09/21/23 09/21/23 09/22/23 14:59 22:59 06:59 Intake Total 3652 150 Output Total 700 850 Balance 2952 -700 Intake: IV 3652 Intake, IV Titration 150 Amount Lactated Ringers 1,000 ml 100 @ 20 mls/hr IV .Q24H [facility] Rx#:[id number] ceFAZolin 2 gm In Sodium 50 Chloride 0.9% 50 ml @ 100 mls/hr IVPB ONCE PRN Rx# :[id number] Output: Urine 600 850 Estimated Blood Loss 100 Other: Voiding Method Indwelling Catheter Weight 97.2 kg
--- NOTE | 2023-09-22 01:38 | CT ---
EXAM: CT Lumbar Spine Without Intravenous Contrast CLINICAL HISTORY: ITS.REASON CT Reason: s/p L4-S1 ALIF L4-S1 MIS PLIF TECHNIQUE: Axial computed tomography images of the lumbar spine without intravenous contrast. CTDI is 0 mGy and DLP is 1585.7 mGy-cm. This CT exam was performed using one or more of the following dose reduction techniques: automated exposure control, adjustment of the mA and/or kV according to patient size, and/or use of iterative reconstruction technique. COMPARISON: 06/04/2023 FINDINGS: Vertebrae: Mild loss of disc height and endplate osteophyte formation. Mild facet hypertrophy. No acute fracture. Discs/spinal canal/neural foramina: Mild bilateral neural foraminal stenosis at L4-5. Moderate bilateral neural foraminal stenosis L5-S1. Stable postsurgical changes from anterior and posterior lumbar interbody fusion L4-S1. Hardware is intact. Degenerative changes sacroiliac joints. Broad-based disc bulge L3-4 causes some mild narrowing of the thecal sac. No high-grade spinal canal stenosis. Soft tissues: Small foci of gas in the posterior paraspinal soft tissues and within the retroperitoneum from the recent surgery. Minimal hazy stranding/hemorrhage in the left retroperitoneum. IMPRESSION: 1. Lumbar degenerative disc disease and facet arthropathy. Mild bilateral neural foraminal stenosis at L4-5. Moderate bilateral neural foraminal stenosis L5-S1. 2. Stable postsurgical changes from anterior and posterior lumbar interbody fusion L4-S1. Hardware is intact.
[2023-09-22] MEDS: HYDROmorphone 1 MG/ML 1 ML SYRINGE IVP PRN (02:20)
[2023-09-22] MEDS: KETOROLAC 15 MG/ML 1 ML VIAL IVP PRN (08:18)
[2023-09-22] MEDS: CYCLOBENZAPRINE 5 MG TAB PO SCH (08:19)
[2023-09-22] MEDS: SENNOSIDES-DOCUSATE SODIUM 1 EACH TAB PO SCH (08:20)
[2023-09-22] MEDS: lisinopriL 5 MG TAB PO SCH (08:20)
[2023-09-22] MEDS: buPROPion 100 MG TAB PO SCH (08:21)
[2023-09-22 08:51] LABS: Basophils # (A) 0.02 X 10*3/uL (0.00-0.10); Basophils % (A) 0.2 %; Eosinophils # (A) 0.02 X 10*3/uL (0.04-0.35); Eosinophils % (A) 0.2 %; HGB 12.7 g/dL (13.0-17.0); Lymphocytes # (A) 1.72 X 10*3/uL (0.90-5.00); Lymphocytes % (A) 15.4 %; MCH 30.6 pg (27.0-32.0); MCHC 34.3 g/dL (32.0-37.0); MCV 89.2 FL (80.0-97.0); Mean Platelet Volume 10.4 FL (9.5-12.2); Monocytes # (A) 0.67 X 10*3/uL (0.20-1.00); NRBC Per 100 WBC 0 X 10*3/uL (0.00-0.01); Neutrophils # (A) 8.67 X 10*3/uL (1.80-7.70); Neutrophils % (A) 77.8 %; Platelet Count 152 X 10*3/uL (140-440); RBC 4.15 X 10*6/uL (4.40-5.60); RDW 13.3 % (11.5-14.5); WBC 11.14 X 10*3/uL (4.50-10.00)
--- NOTE | 2023-09-22 09:41 | P.PN ---
Subjective Progress Note Date: 09/22/23 Principal diagnosis: 1. L4-S1 spondylosis with stenosis, severe 2. Left foot drop 3. Left lower extremity radiculopathy Patient seen and examined this morning. Patient is resting in bed. He does have moderate complaint of low back pain with spasms. Medications have been adjusted. He states he has not been up since procedure. Park catheter has been discontinued this morning, patient is due to void. He does have his LSO brace at bedside. Educated patient on the importance of being up and about today. Patient may have breakfast in bed and then needs to be up to chair for all meals. Patient states he does notice improvement in his lower extremity weakness and radiculopathy since the procedure. He demonstrates his mobility of LLE while in bed. Encourage patient to continue flexion and extension exercises of his left foot and ankle. Continue to encourage use of incentive spirometer while awake. Informed patient to utilize ice paks to his lumbar spine to alleviate pain and swelling. Objective - Vital Signs Vital signs: Vital Signs Temp 99.1 F 09/22/23 01:36 Pulse 114 H 09/22/23 01:36 Resp 18 09/22/23 01:36 BP 121/66 09/22/23 01:36 Pulse Ox 96 09/22/23 01:36 FiO2 Intake & Output 09/21/23 09/22/23 09/22/23 18:59 06:59 18:59 Intake Total 3802 1200 Output Total 1550 2100 Balance 2252 -900 Weight 97.2 kg Intake: IV 3652 Intake, IV Titration 150 Amount Lactated Ringers 1,000 ml 100 @ 20 mls/hr IV .Q24H [facility]1983 Rx#:[id number] ceFAZolin 2 gm In Sodium 50 Chloride 0.9% 50 ml @ 100 mls/hr IVPB ONCE PRN Rx# :[id number] Oral 1200 Output: Urine 1450 2100 Estimated Blood Loss 100 Other: Voiding Method Indwelling Catheter - Exam Physical Examination General: The patient is awake and alert, in no acute distress Skin: Skin is warm and dry with no obvious rashes or lesions. Surgical incision to the lower abdomen, dressing is clean dry and intact. Surgical incisions to the lumbar spine, dressings are clean dry and intact. Eye: Pupils are equal, round and reactive to light, extra-ocular movements are intact; there is normal conjunctiva bilaterally. Neck: The neck is supple, there is no tenderness and ROM intact. Cardiovascular: There is a regular rate and rhythm. No murmur, rub or gallop is appreciated. Respiratory: Respirations are non-labored, breath sounds are equal. Gastrointestinal: Soft, non-distended, Tender to palpation of the abdomen due to surgical procedure. Back: There is no tenderness to palpation in the midline, paralumbar, parathoracic or buttocks region. There is no obvious deformity . Musculoskeletal: ROM limited secondary to pain and stiffness from surgical procedure. Muscle strength in all major muscle groups of bilateral upper extremities 5/5, 4/5 right lower extremity, 4-/5 left lower extremity. Neurological: CN 2-12 intact. There are no obvious motor or sensory deficits. Movement and coordination equal and intact. Sensory exam to light touch intact C5-T1 and intact from L2-S1. Reflexes 2/4 in bilateral upper and lower extremities. Negative Hoffmans, babinski, and clonus signs. Psychiatric: Cooperative, appropriate mood & affect, normal judgment. - Labs CBC & Chem 7: 09/22/23 05:28 Assessment and Plan Assessment: Postop day 1: Stage I: L4-5 and L5-S1 Anterior lumbar interbody fusion. Stage II: (Same day) L4-S1 posteriolateral stabilized fusion with decompression. 1. L4-S1 spondylosis with stenosis, severe 2. Left foot drop 3. Left lower extremity radiculopathy Plan: -Appreciate risk control consultant and team management. -Activity: Ambulate QID, OOB all meals, up and about, limit lifting bending twisting to less than 5 lbs. Use walker or cane if needed for stability. -Daily PT/OT, increase ambulation strength and balance. -Brace when up and about, not needed in bed or chair -Pain control: Adequate at this time -Encourage use of incentive spirometer x10/hr while awake -Meds: reviewed -GI ppx: senna, MOM -DVT PPX: OK to restart Heparin tonight -Hygiene: Shower today. Maintain dressing clean and dry. Meticulous cleaning after BMs away from the incision site -Encourage IS 10x/hr -Dispo: Clinically pending *I reviewed and discussed this case with my attending Dr. Smalls, whom has reviewed this chart and films and is in agreement with assessment and plan of care as outlined above. I have personally seen and examined the patient, performed the documentation and the assessment and plan as written. Number of minutes spent on the visit: 20m.
--- NOTE | 2023-09-22 13:03 | P.PN ---
Subjective Progress Note Date: 09/22/23 Patient is seen and examined today as a follow-up. He is postop day #1 for 2 stage surgery. For stage L5-S1 anterior lumbar interbody fusion, L4-L5 anterior lumbar interbody fusion, insertion of biomechanical device L4-5 and L5-S1 which vascular surgery assisted and was co-surgeon on. Stage II surgery completed by orthopedic surgeon L4 S1 posterolateral instrumented fusion, L4 S1 segmental instrumentation, use of Soila navigation for screw placement. Patient is seen and examined up in the chair. He states he has been up and ambulating. Pain is well-managed. Most of his pain is if he coughs or laughs. He denies any shortness of breath, chest pain, abdominal pain, nausea or vomiting. He is tolerating a regular diet. He has been afebrile. Objective - Vital Signs Vital signs: Vital Signs Temp 98.9 F 09/22/23 07:10 Pulse 109 H 09/22/23 07:10 Resp 16 09/22/23 07:10 BP 117/81 09/22/23 07:10 Pulse Ox 96 09/22/23 07:10 FiO2 Intake & Output 09/21/23 09/22/23 09/22/23 18:59 06:59 18:59 Intake Total 3802 1200 Output Total 1550 2100 Balance 2252 -900 Weight 97.2 kg Intake: IV 3652 Intake, IV Titration 150 Amount Lactated Ringers 1,000 ml 100 @ 20 mls/hr IV .Q24H [facility] Rx#:[id number] ceFAZolin 2 gm In Sodium 50 Chloride 0.9% 50 ml @ 100 mls/hr IVPB ONCE PRN Rx# :[id number] Oral 1200 Output: Urine 1450 2100 Estimated Blood Loss 100 Other: Voiding Method Indwelling Catheter - Exam General appearance: The patient is alert, oriented, appears in no acute distress. HET: Head is normocephalic and atraumatic. Pupils are equal and reactive. Neck: Supple. Heart: Regular. Lungs: Equal expansion, normal respiratory effort. Abdomen: Soft, send clean dry and intact, nondistended. Extremities: Normal skin color and turgor. Neurological: No focal deficits. - Labs CBC & Chem 7: 09/22/23 05:28 Labs: Abnormal Lab Results - Last 24 Hours (Table) 09/22/23 Range/Units 05:28 WBC 11.14 H (4.50-10.00) X 10*3/uL RBC 4.15 L (4.40-5.60) X 10*6/uL Hgb 12.7 L (13.0-17.0) g/dL Hct 37.0 L (39.6-50.0) % Neutrophils # 8.67 H (1.80-7.70) X 10*3/uL Eosinophils # 0.02 L (0.04-0.35) X 10*3/uL Assessment and Plan Assessment: 1. Postop day #1 for stage I L4-5 and L5-S1 anterior lumbar interbody fusion. Stage II same day L4-S1. Lateral stabilized fusion with decompression 2. L4 S1 spondylosis with stenosis 3. Left foot drop 4. Left lower extremity radiculopathy Plan: Continue with postop surgical care and recommendations from orthopedic surgery. Encourage incentive spirometer. There is no further indication for any vascular surgical intervention at this time. You for allowing us to assist, we will sign off at this time. The impression and plan of care has been dictated as directed. I performed a history and examination of this patient, discussed the same with the dictator. I agree with the dictator's note ,documented as a scribe. Any additional findings or plans will be noted.
[2023-09-22] MEDS: HYDROcodone/APAP 10-325MG 1 EACH TAB PO PRN (13:35)
--- NOTE | 2023-09-22 17:26 | P.PN ---
Progress Note - Text Progress Note Date: 09/22/23 - Chief Complaint Lumbar surgery - History of Present Illness This is a 32-year-old patient who follows with Dr. Luis Fernando Benson. On June 02., Patient started on movement 250 pound load. He felt something cracking in his back. When he laid down. He got up he was having severe pain. Since then he has had weakness in the left leg. Numbness below the left knee. Sharp pain shooting down the left leg. Patient also had left lower extremity foot drop. Patient underwent lumbar surgery by Dr. Smalls. Postprocedure patient having pain at the operative site. No nausea vomiting. September 21: Patient up in a chair. Tolerating his meals. No flatus. Some pain present. Patient's girlfriend at the bedside. Active Medications Acetaminophen (Acetaminophen Tab 325 Mg Tab) 650 mg PO Q6HR [facility] Stop: 10/21/23 18:01 Last Admin: 09/22/23 16:51 Dose: 650 mg Hydrocodone Bitart/Acetaminophen (Hydrocodone/Apap 5-325mg 1 Each Tab) 1 each PO Q6HR PRN PRN Reason: Pain Scale 4 - 6 Stop: 10/21/23 14:06 Last Admin: 09/21/23 16:22 Dose: 1 each Hydrocodone Bitart/Acetaminophen (Hydrocodone/Apap 10-325mg 1 Each Tab) 1 each PO Q4H PRN PRN Reason: Pain Scale 7 - 10 Stop: 10/21/23 14:06 Last Admin: 09/22/23 13:35 Dose: 1 each Bupropion HCl (Bupropion 100 Mg Tab) 100 mg PO DAILY [facility] Last Admin: 09/22/23 08:21 Dose: 100 mg Cyclobenzaprine HCl (Cyclobenzaprine 5 Mg Tab) 5 mg PO TID [facility] Stop: 10/21/23 08:01 Last Admin: 09/22/23 16:51 Dose: 5 mg Gabapentin (Gabapentin 300 Mg Cap) 300 mg PO TID [facility] Last Admin: 09/22/23 16:51 Dose: 300 mg Hydromorphone HCl (Hydromorphone 1 Mg/Ml 1 Ml Syringe) 1 mg IVP Q3HR PRN PRN Reason: Pain Scale of 7 - 10 Stop: 10/21/23 14:06 Last Admin: 09/22/23 02:20 Dose: 1 mg Hydromorphone HCl (Hydromorphone 0.5 Mg/0.5 Ml Syringe) 0.5 mg IVP Q3HR PRN PRN Reason: Pain Scale 4 - 6 Stop: 10/21/23 14:06 Last Admin: 09/21/23 23:15 Dose: 0.5 mg Lactated Ringer's (Lactated Ringers) 1,000 mls @ 20 mls/hr IV .Q24H [facility] Stop: 10/21/23 06:13 Last Admin: 09/22/23 07:33 Dose: Not Given Ketorolac Tromethamine (Ketorolac 15 Mg/Ml 1 Ml Vial) 15 mg IVP Q6HR PRN PRN Reason: pain Stop: 09/27/23 07:16 Last Admin: 09/22/23 08:18 Dose: 15 mg Lidocaine HCl (Lidocaine 1% (10mg/Ml) For Iv Start) 0.1 ml INTRADERMA PER PROTOCOL PRN PRN Reason: IV Start Stop: 10/21/23 06:13 Lisinopril (Lisinopril 5 Mg Tab) 5 mg PO DAILY [facility] Last Admin: 09/22/23 08:20 Dose: 5 mg Magnesium Hydroxide (Magnesium Hydroxide 2,400 Mg/30 Ml Cup) 2,400 mg PO DAILY PRN PRN Reason: Constipation Stop: 10/21/23 14:06 Senna/Docusate Sodium (Sennosides-Docusate Sodium 1 Each Tab) 2 each PO DAILY [facility] Stop: 10/21/23 14:06 Last Admin: 09/22/23 08:20 Dose: 2 each Social history: Lives with 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 Was drinking 6-7 beers a week up till couple of months ago. Smoked a pack a day for about 20 years. Stopped recently. Physical examination: VITAL SIGNS: 98.9, 109, 16, 117 x 81, 96% room air GENERAL: Up in a chair EYES: Pupils equal. Conjunctiva kimberly l. HEENT: External appearance of nose and ears normal, oral cavity grossly normal. NECK: JVD not raised; masses not palpable. HEART: First and second heart sounds are normal; no edema. LUNGS: Respiratory rate normal; clear to auscultation. ABDOMEN: Soft, nontender, liver spleen not palpable, no masses palpable. Dressing over the incision site. Park catheter PSYCH: Alert and oriented x3; mood and affect kimberly l. MUSCULOSKELETAL:No Clubbing/cyanosis;muscles-grossly intact. Dressing over incision site NEUROLOGICAL: Left foot drop. INVESTIGATIONS, reviewed in the clinical context: September 21: White count 11.1 hemoglobin 12.7 platelets 152 Assessment plan -Acute low back pain with radiculopathy of the left leg and left foot drop that happened in June 02 while moving a heavy load. stage I L4-5 and L5-S1 anterior lumbar interbody fusion. Stage II same day L4- S1. Lateral stabilized fusion with decompression L4 S1 spondylosis with stenosis / Left foot drop /Left lower extremity radiculopathy -Essential hypertension Zestril 5 mg a day -Depression anxiety Wellbutrin -Acute postprocedure blood loss anemia expected from surgery -Reactive leukocytosis secondary surgery. No obvious clinical evidence of infection Discussed with patient. Thank you Dr. Smalls Past Medical History Past Medical History: No Reported History, Hypertension, Osteoarthritis (OA) Additional Past Medical History / Comment(s): Varicose veins. History of Any Multi-Drug Resistant Organisms: None Reported Past Surgical History: No Surgical Hx Reported Additional Past Surgical History / Comment(s): [place] teeth. Past Anesthesia/Blood Transfusion Reactions: No Reported Reaction Past Psychological History: ADD/ADHD, Anxiety, Depression Smoking Status: Current every day smoker Past Alcohol Use History: None Reported Additional Past Alcohol Use History / Comment(s): Smokes 1/4 ppd, started at age 20. Past Drug Use History: None Reported
--- NOTE | 2023-09-23 09:05 | P.PN ---
Subjective Progress Note Date: 09/23/23 Principal diagnosis: 1. L4-S1 spondylosis with stenosis, severe 2. Left foot drop 3. Left lower extremity radiculopathy Patient seen and examined this morning. Upon entering room patient was standing at bedside with walker and standby assist. Patient reports that he is feeling pretty good today. Surgical incisions to the lower abdomen and posterior lumbar spine, dressings are clean dry and intact. Patient states that he has been up in the chair for meals and has been working with physical therapy, tolerating activity well. LSO brace is at bedside. Patient reports the walker he has in his room is brought from home. He states that he has been urinating without difficulty and has been passing gas. Patient reports that his pain is managed on current regimen. Informed patient that if he is to feel well later this afternoon he may be discharged later today. Patient verbalizes that he feels he would be safe going home. No acute concerns at this time. Objective - Vital Signs Vital signs: Vital Signs Temp 98.4 F 09/23/23 07:25 Pulse 110 H 09/23/23 07:25 Resp 16 09/23/23 07:25 BP 118/77 09/23/23 07:25 Pulse Ox 96 09/23/23 07:25 FiO2 Intake & Output 09/22/23 09/23/23 09/23/23 18:59 06:59 18:59 Other: Voiding Method Toilet # Voids 2 3 - Exam Physical Examination General: The patient is awake and alert, in no acute distress Skin: Skin is warm and dry with no obvious rashes or lesions. Surgical incision to the lower abdomen, dressing is clean dry and intact. Surgical incisions to the lumbar spine, dressings are clean dry and intact. Eye: Pupils are equal, round and reactive to light, extra-ocular movements are intact; there is normal conjunctiva bilaterally. Neck: The neck is supple, there is no tenderness and ROM intact. Cardiovascular: There is a regular rate and rhythm. No murmur, rub or gallop is appreciated. Respiratory: Respirations are non-labored, breath sounds are equal. Gastrointestinal: Soft, non-distended, Tender to palpation of the abdomen due to surgical procedure. Back: There is no tenderness to palpation in the midline, paralumbar, parathoracic or buttocks region. There is no obvious deformity . Musculoskeletal: ROM limited secondary to pain and stiffness from surgical procedure. Muscle strength in all major muscle groups of bilateral upper extremities 5/5, 5/5 right lower extremity, 4/5 left lower extremity. Neurological: CN 2-12 intact. There are no obvious motor or sensory deficits. Movement and coordination equal and intact. Sensory exam to light touch intact C5-T1 and intact from L2-S1. Reflexes 2/4 in bilateral upper and lower extremities. Negative Hoffmans, babinski, and clonus signs. Psychiatric: Cooperative, appropriate mood & affect, normal judgment. - Labs CBC & Chem 7: 09/22/23 05:28 Labs: Abnormal Lab Results - Last 24 Hours (Table) 09/22/23 Range/Units 05:28 WBC 11.14 H (4.50-10.00) X 10*3/uL RBC 4.15 L (4.40-5.60) X 10*6/uL Hgb 12.7 L (13.0-17.0) g/dL Hct 37.0 L (39.6-50.0) % Neutrophils # 8.67 H (1.80-7.70) X 10*3/uL Eosinophils # 0.02 L (0.04-0.35) X 10*3/uL Assessment and Plan Assessment: Postop day 2: Stage I: L4-5 and L5-S1 Anterior lumbar interbody fusion. Stage II: (Same day) L4-S1 posteriolateral stabilized fusion with decompression. 1. L4-S1 spondylosis with stenosis, severe 2. Left foot drop 3. Left lower extremity radiculopathy Plan: -Appreciate regional sales consultant and team management. -Activity: Ambulate QID, OOB all meals, up and about, limit lifting bending twisting to less than 5 lbs. Use walker or cane if needed for stability. -Daily PT/OT, increase ambulation strength and balance. -Brace when up and about, not needed in bed or chair -Pain control: Adequate at this time -Encourage use of incentive spirometer x10/hr while awake -Meds: reviewed -GI ppx: senna, MOM -DVT PPX: Heparin -Hygiene: Shower today. Maintain dressing clean and dry. Meticulous cleaning after BMs away from the incision site -Encourage IS 10x/hr -Dispo: Anticipate discharge home with home care later today versus tomorrow. *I reviewed and discussed this case with my attending Dr. Smalls, whom has reviewed this chart and films and is in agreement with assessment and plan of care as outlined above. I have personally seen and examined the patient, performed the documentation and the assessment and plan as written. Number of minutes spent on the visit: 20m.
[2023-09-23] MEDS: LACTULOSE 20 GM/30 ML CUP PO PRN (13:15)
--- NOTE | 2023-09-23 15:52 | P.PN ---
Progress Note - Text Progress Note Date: 09/23/23 - Chief Complaint Lumbar surgery - History of Present Illness This is a 32-year-old patient who follows with Dr. Luis Fernando Benson. On June 02., Patient started on movement 250 pound load. He felt something cracking in his back. When he laid down. He got up he was having severe pain. Since then he has had weakness in the left leg. Numbness below the left knee. Sharp pain shooting down the left leg. Patient also had left lower extremity foot drop. Patient underwent lumbar surgery by Dr. Smalls. Postprocedure patient having pain at the operative site. No nausea vomiting. September 21: Patient up in a chair. Tolerating his meals. No flatus. Some pain present. Patient's girlfriend at the bedside. September 22: Patient did ambulate well with physical therapy yesterday. Walked 100 feet.-With a rolling walker. Pain better. Tolerating diet. No bowel movement as yet. Told increase activity more. Active Medications Acetaminophen (Acetaminophen Tab 325 Mg Tab) 650 mg PO Q6HR [facility] Stop: 10/21/23 18:01 Last Admin: 09/23/23 13:14 Dose: 650 mg Hydrocodone Bitart/Acetaminophen (Hydrocodone/Apap 5-325mg 1 Each Tab) 1 each PO Q6HR PRN PRN Reason: Pain Scale 4 - 6 Stop: 10/21/23 14:06 Last Admin: 09/21/23 16:22 Dose: 1 each Hydrocodone Bitart/Acetaminophen (Hydrocodone/Apap 10-325mg 1 Each Tab) 1 each PO Q4H PRN PRN Reason: Pain Scale 7 - 10 Stop: 10/21/23 14:06 Last Admin: 09/23/23 08:51 Dose: 1 each Bupropion HCl (Bupropion 100 Mg Tab) 100 mg PO DAILY [facility] Last Admin: 09/23/23 08:52 Dose: 100 mg Cyclobenzaprine HCl (Cyclobenzaprine 5 Mg Tab) 5 mg PO TID [facility] Stop: 10/21/23 08:01 Last Admin: 09/23/23 08:52 Dose: 5 mg Gabapentin (Gabapentin 300 Mg Cap) 300 mg PO TID [facility] Last Admin: 09/23/23 08:52 Dose: 300 mg Hydromorphone HCl (Hydromorphone 1 Mg/Ml 1 Ml Syringe) 1 mg IVP Q3HR PRN PRN Reason: Pain Scale of 7 - 10 Stop: 10/21/23 14:06 Last Admin: 09/22/23 02:20 Dose: 1 mg Hydromorphone HCl (Hydromorphone 0.5 Mg/0.5 Ml Syringe) 0.5 mg IVP Q3HR PRN PRN Reason: Pain Scale 4 - 6 Stop: 10/21/23 14:06 Last Admin: 09/21/23 23:15 Dose: 0.5 mg Lactated Ringer's (Lactated Ringers) 1,000 mls @ 20 mls/hr IV .Q24H [facility] Stop: 10/21/23 06:13 Last Admin: 09/23/23 08:48 Dose: Not Given Ketorolac Tromethamine (Ketorolac 15 Mg/Ml 1 Ml Vial) 15 mg IVP Q6HR PRN PRN Reason: pain Stop: 09/27/23 07:16 Last Admin: 09/23/23 13:14 Dose: 15 mg Lactulose (Lactulose 20 Gm/30 Ml Cup) 20 gm PO DAILY PRN PRN Reason: Constipation Last Admin: 09/23/23 13:15 Dose: 20 gm Lidocaine HCl (Lidocaine 1% (10mg/Ml) For Iv Start) 0.1 ml INTRADERMA PER PROTOCOL PRN PRN Reason: IV Start Stop: 10/21/23 06:13 Lisinopril (Lisinopril 5 Mg Tab) 5 mg PO DAILY [facility] Last Admin: 09/23/23 08:52 Dose: 5 mg Magnesium Hydroxide (Magnesium Hydroxide 2,400 Mg/30 Ml Cup) 2,400 mg PO DAILY [facility] Stop: 10/21/23 14:06 Polyethylene Glycol (Polyethylene Glycol 3350 17 Gm Powd.Pack) 17 gm PO DAILY [facility] Senna/Docusate Sodium (Sennosides-Docusate Sodium 1 Each Tab) 2 each PO DAILY [facility] Stop: 10/21/23 14:06 Last Admin: 09/23/23 08:52 Dose: 2 each Social history: Lives with 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 Smoked a pack a day for about 20 years. Stopped recently. Physical examination: VITAL SIGNS: 98.4, 110, 16, 118 x 77, 96% room air GENERAL: Up in a recliner EYES: Pupils equal. Conjunctiva kimberly l. HEENT: External appearance of nose and ears normal, oral cavity grossly normal. NECK: JVD not raised; masses not palpable. HEART: First and second heart sounds are normal; no edema. LUNGS: Respiratory rate normal; clear to auscultation. ABDOMEN: Soft, nontender, liver spleen not palpable, no masses palpable. Dressing over the incision site. Park catheter PSYCH: Alert and oriented x3; mood and affect kimberly l. MUSCULOSKELETAL:No Clubbing/cyanosis;muscles-grossly intact. Dressing over incision site NEUROLOGICAL: Left foot drop. INVESTIGATIONS, reviewed in the clinical context: September 21: White count 11.1 hemoglobin 12.7 platelets 152 Assessment plan -Acute low back pain with radiculopathy of the left leg and left foot drop that happened in June 02 while moving a heavy load. stage I L4-5 and L5-S1 anterior lumbar interbody fusion. Stage II same day L4- S1. Lateral stabilized fusion with decompression L4 S1 spondylosis with stenosis / Left foot drop /Left lower extremity radiculopathy -Essential hypertension Zestril 5 mg a day -Depression anxiety Wellbutrin -Acute postprocedure blood loss anemia expected from surgery -Reactive leukocytosis secondary surgery. No obvious clinical evidence of infection Patient ambulating well. Continue current medications. Increase activity. Thank you Dr. Smalls Past Medical History Past Medical History: No Reported History, Hypertension, Osteoarthritis (OA) Additional Past Medical History / Comment(s): Varicose veins. History of Any Multi-Drug Resistant Organisms: None Reported Past Surgical History: No Surgical Hx Reported Additional Past Surgical History / Comment(s): [place] teeth. Past Anesthesia/Blood Transfusion Reactions: No Reported Reaction Past Psychological History: ADD/ADHD, Anxiety, Depression Smoking Status: Current every day smoker Past Alcohol Use History: None Reported Additional Past Alcohol Use History / Comment(s): Smokes 1/4 ppd, started at age 20. Past Drug Use History: None Reported
[2023-09-23] MEDS: polyethylene glycoL 3350 17 GM POWD.PACK PO SCH (16:49)
[2023-09-23] MEDS: MAGNESIUM HYDROXIDE 2,400 MG/30 ML CUP PO SCH (16:49)
--- NOTE | 2023-09-24 08:07 | P.PN ---
Subjective Progress Note Date: 09/24/23 Principal diagnosis: 1. L4-S1 spondylosis with stenosis, severe 2. Left foot drop 3. Left lower extremity radiculopathy Patient seen and examined this morning. Patient is resting comfortably in bed. Yesterday afternoon patient developed mild abdominal distention and pressure. Patient reported that he was no longer passing gas and was developing abdominal pain. Medications had been adjusted. This morning patient reports that he was passing gas yesterday afternoon and is feeling better. He continues to deny any bowel movement at this time. Encourage patient to ambulate throughout the day and be up to the chair with all meals. Patient may shower today, remove dressings and allow soapy water to run over incisions and pat dry. Dressings are not needed if there is no drainage. Patient continues to report improvement of mobility and range of motion of the left lower extremity since the procedure. Possible discharge later today. No acute concerns. Objective - Vital Signs Vital signs: Vital Signs Temp 98.8 F 09/24/23 02:00 Pulse 99 09/24/23 02:00 Resp 12 09/24/23 02:00 BP 142/83 09/24/23 02:00 Pulse Ox 97 09/24/23 02:00 FiO2 Intake & Output 09/23/23 09/24/23 09/24/23 18:59 06:59 18:59 Other: Voiding Method Toilet Toilet # Voids 2 - Exam Physical Examination General: The patient is awake and alert, in no acute distress Skin: Skin is warm and dry with no obvious rashes or lesions. Surgical incision to the lower abdomen, dressing is clean dry and intact. Surgical incisions to the lumbar spine, dressings are clean dry and intact. Eye: Pupils are equal, round and reactive to light, extra-ocular movements are i ntact; there is normal conjunctiva bilaterally. Neck: The neck is supple, there is no tenderness and ROM intact. Cardiovascular: There is a regular rate and rhythm. No murmur, rub or gallop is appreciated. Respiratory: Respirations are non-labored, breath sounds are equal. Gastrointestinal: Soft, non-distended, Tender to palpation of the abdomen due to surgical procedure. Back: There is no tenderness to palpation in the midline, paralumbar, parathoracic or buttocks region. There is no obvious deformity . Musculoskeletal: ROM limited secondary to pain and stiffness from surgical p rocedure. Muscle strength in all major muscle groups of bilateral upper extremities 5/5, 5/5 right lower extremity, 4/5 left lower extremity. Neurological: CN 2-12 intact. There are no obvious motor or sensory deficits. Movement and coordination equal and intact. Sensory exam to light touch intact C5-T1 and intact from L2-S1. Reflexes 2/4 in bilateral upper and lower extremities. Negative Hoffmans, babinski, and clonus signs. Psychiatric: Cooperative, appropriate mood & affect, normal judgment. - Labs CBC & Chem 7: 09/22/23 05:28 Assessment and Plan Assessment: Postop day 3: Stage I: L4-5 and L5-S1 Anterior lumbar interbody fusion. Stage II: (Same day) L4-S1 posteriolateral stabilized fusion with decompression. 1. L4-S1 spondylosis with stenosis, severe 2. Left foot drop 3. Left lower extremity radiculopathy Plan: -Appreciate production consultant and team management. -Activity: Ambulate QID, OOB all meals, up and about, limit lifting bending twisting to less than 5 lbs. Use walker or cane if needed for stability. -Daily PT/OT, increase ambulation strength and balance. -Brace when up and about, not needed in bed or chair. -Pain control: Adequate at this time -Encourage use of incentive spirometer x10/hr while awake -Meds: reviewed -GI ppx: senna, MOM -DVT PPX: Heparin -Hygiene: Shower today. Maintain dressing clean and dry. Meticulous cleaning after BMs away from the incision site -Encourage IS 10x/hr -Dispo: Anticipate discharge home with home care later today versus tomorrow. *I reviewed and discussed this case with my attending Dr. Smalls, whom has reviewed this chart and films and is in agreement with assessment and plan of care as outlined above. I have personally seen and examined the patient, performed the documentation and the assessment and plan as written. Number of minutes spent on the visit: 20m.
[2023-09-24] MEDS: bisacodyL 10 MG SUPP RECTAL STA (14:27)
[2023-09-24] MEDS: LACTULOSE 20 GM/30 ML CUP PO ONE (14:45)
--- NOTE | 2023-09-24 16:24 | P.PN ---
Progress Note - Text Progress Note Date: 09/24/23 - Chief Complaint Lumbar surgery - History of Present Illness This is a 32-year-old patient who follows with Dr. Luis Fernando Benson. On June 02., Patient started on movement 250 pound load. He felt something cracking in his back. When he laid down. He got up he was having severe pain. Since then he has had weakness in the left leg. Numbness below the left knee. Sharp pain shooting down the left leg. Patient also had left lower extremity foot drop. Patient underwent lumbar surgery by Dr. Smalls. Postprocedure patient having pain at the operative site. No nausea vomiting. September 21: Patient up in a chair. Tolerating his meals. No flatus. Some pain present. Patient's girlfriend at the bedside. September 22: Patient did ambulate well with physical therapy yesterday. Walked 100 feet.-With a rolling walker. Pain better. Tolerating diet. No bowel movement as yet. Told increase activity more. September 23: Saw the patient earlier today. Tolerating diet. Ambulating. But no bowel movement. He did receive laxative earlier. With no result. Dulcolax suppository and lactulose 30 g ordered. Later did have a bowel movement. Active Medications Acetaminophen (Acetaminophen Tab 325 Mg Tab) 650 mg PO Q6HR [facility] Stop: 10/21/23 18:01 Last Admin: 09/24/23 11:56 Dose: 650 mg Hydrocodone Bitart/Acetaminophen (Hydrocodone/Apap 5-325mg 1 Each Tab) 1 each PO Q6HR PRN PRN Reason: Pain Scale 4 - 6 Stop: 10/21/23 14:06 Last Admin: 09/24/23 13:41 Dose: 1 each Hydrocodone Bitart/Acetaminophen (Hydrocodone/Apap 10-325mg 1 Each Tab) 1 each PO Q4H PRN PRN Reason: Pain Scale 7 - 10 Stop: 10/21/23 14:06 Last Admin: 09/24/23 02:54 Dose: 1 each Bupropion HCl (Bupropion 100 Mg Tab) 100 mg PO DAILY [facility] Last Admin: 09/24/23 08:06 Dose: 100 mg Cyclobenzaprine HCl (Cyclobenzaprine 5 Mg Tab) 5 mg PO TID [facility] Stop: 10/21/23 08:01 Last Admin: 09/24/23 08:06 Dose: 5 mg Gabapentin (Gabapentin 300 Mg Cap) 300 mg PO TID [facility] Last Admin: 09/24/23 08:06 Dose: 300 mg Hydromorphone HCl (Hydromorphone 1 Mg/Ml 1 Ml Syringe) 1 mg IVP Q3HR PRN PRN Reason: Pain Scale of 7 - 10 Stop: 10/21/23 14:06 Last Admin: 09/22/23 02:20 Dose: 1 mg Hydromorphone HCl (Hydromorphone 0.5 Mg/0.5 Ml Syringe) 0.5 mg IVP Q3HR PRN PRN Reason: Pain Scale 4 - 6 Stop: 10/21/23 14:06 Last Admin: 09/21/23 23:15 Dose: 0.5 mg Lactated Ringer's (Lactated Ringers) 1,000 mls @ 20 mls/hr IV .Q24H [facility] Stop: 10/21/23 06:13 Last Admin: 09/24/23 11:30 Dose: Not Given Ketorolac Tromethamine (Ketorolac 15 Mg/Ml 1 Ml Vial) 15 mg IVP Q6HR PRN PRN Reason: pain Stop: 09/27/23 07:16 Last Admin: 09/23/23 13:14 Dose: 15 mg Lactulose (Lactulose 20 Gm/30 Ml Cup) 20 gm PO DAILY PRN PRN Reason: Constipation Last Admin: 09/24/23 02:41 Dose: 20 gm Lidocaine HCl (Lidocaine 1% (10mg/Ml) For Iv Start) 0.1 ml INTRADERMA PER PROTOCOL PRN PRN Reason: IV Start Stop: 10/21/23 06:13 Lisinopril (Lisinopril 5 Mg Tab) 5 mg PO DAILY [facility] Last Admin: 09/24/23 08:06 Dose: 5 mg Magnesium Hydroxide (Magnesium Hydroxide 2,400 Mg/30 Ml Cup) 2,400 mg PO DAILY [facility] Stop: 10/21/23 14:06 Last Admin: 09/24/23 08:06 Dose: 2,400 mg Polyethylene Glycol (Polyethylene Glycol 3350 17 Gm Powd.Pack) 17 gm PO DAILY [facility] Last Admin: 09/24/23 08:06 Dose: 17 gm Senna/Docusate Sodium (Sennosides-Docusate Sodium 1 Each Tab) 2 each PO DAILY [facility] Stop: 10/21/23 14:06 Last Admin: 09/24/23 08:06 Dose: 2 each Social history: Lives with 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 Was drinking 6-7 beers a week up till couple of months ago. Smoked a pack a day for about 20 ye ars. Stopped recently. Physical examination: VITAL SIGNS: 98.4, 93, 17, 129 x 79, 97% room air GENERAL: Up, comfortable EYES: Pupils equal. Conjunctiva kimberly l. HEENT: External appearance of nose and ears normal, oral cavity grossly normal. NECK: JVD not raised; masses not palpable. HEART: First and second heart sounds are normal; no edema. LUNGS: Respiratory rate normal; clear to auscultation. ABDOMEN: Soft, nontender, liver spleen not palpable, no masses palpable. Dressing over the incision site. Park catheter PSYCH: Alert and oriented x3; mood and affect kimberly l. MUSCULOSKELETAL:No Clubbing/cyanosis;muscles-grossly intact. Dressing over incision site NEUROLOGICAL: Left foot drop. INVESTIGATIONS, reviewed in the clinical context: September 21: White count 11.1 hemoglobin 12.7 platelets 152 Assessment plan -Acute low back pain with radiculopathy of the left leg and left foot drop that happened in June 02 while moving a heavy load. stage I L4-5 and L5-S1 anterior lumbar interbody fusion. Stage II same day L4- S1. Lateral stabilized fusion with decompression L4 S1 spondylosis with stenosis / Left foot drop /Left lower extremity radiculopathy -Essential hypertension Zestril 5 mg a day -Depression anxiety Wellbutrin -Acute postprocedure blood loss anemia expected from surgery -Reactive leukocytosis secondary surgery. No obvious clinical evidence of infection -Acute constipation decreased activity and pain medications Responded well to lactulose 30 g and Dulcolax suppository today. Doing better. Medically stable. If discharged to follow-up with PCP. Questions answered. Thank you Dr. Smalls Past Medical History Past Medical History: No Reported History, Hypertension, Osteoarthritis (OA) Additional Past Medical History / Comment(s): Varicose veins. History of Any Multi-Drug Resistant Organisms: None Reported Past Surgical History: No Surgical Hx Reported Additional Past Surgical History / Comment(s): [place] teeth. Past Anesthesia/Blood Transfusion Reactions: No Reported Reaction Past Psychological History: ADD/ADHD, Anxiety, Depression Smoking Status: Current every day smoker Past Alcohol Use History: None Reported Additional Past Alcohol Use History / Comment(s): Smokes 1/4 ppd, started at age 20. Past Drug Use History: None Reported
[2023-09-25 08:08] VITALS: BP 122/80; PULSE 97; RESP 19; TEMP 98.4
--- NOTE | 2023-09-25 09:44 | P.DS ---
Providers Date of admission: 09/21/23 05:46 Expected date of discharge: 09/25/23 Attending physician: Iglesia Smalls DO Consults: 09/21/23 15:09 Consult Physician Routine Consulting Provider: Dami Huddleston Consult Reason/Comments: medical managment. Do you want consulting provider notified?: Yes Primary care physician: Jevon Benson [facility] Course: Date of admission: 09/21/2023 Date of discharge: 09/25/2023 Admission diagnosis: 1. L5-S1 spondylosis with stenosis 2. L4-5 spondylosis with stenosis 3. L4-S1 HNP with foraminal stenosis 4. LLE weakness with foot drop, acute 5. Low back pain severe 6. s/p work injury 7. Neurogenic claudication Postoperative Diagnosis: same Procedure(s) Performed: Retroperitoneal exposure for L4-L5 and L5-S1 anterior lumbar interbody fusion Insertion of biomechanical device L4-L5, and L5-S1 Discharge diagnosis: Same Attending physician: Dr. Smalls Surgical procedures: Retroperitoneal exposure for L4-L5 and L5-S1 anterior lumbar interbody fusion Insertion of biomechanical device L4-L5, and L5-S1 Brief history: Patient is a 32-year-old male with a history of L4-5 spondylosis with stenosis; L4-S1 herniated nucleus pulposus with foraminal stenosis; lower extremity weakness with foot drop, low back pain.. At this point patient has failed conservative treatment measures and has opted to proceed with a elective retroperitoneal exposure for L4-L5 and L5-S1 anterior lumbar interbody fusion; insertion of biomechanical device L4-L5 and L5-S1. Hospital course: Details of patient's surgery can be found in operative report. Patient tolerated the procedure well and was subsequently transported to orthopedic floor. Patient's orthopeidc and medical care was provided daily. Patient had daily laboratory tests performed for evaluation of overall blood counts. Patient had daily physical therapy to include strengthening range of motion as well as education with walker ambulation. Patient was noted to have a relatively uneventful postoperative course. Patient reported satisfactory pain control with oral pain medications by postoperative day 4. Patient showed satisfactory progress with physical therapy. Patient moved steadily through the program and had no difficulty meeting the goals by postoperative day 4. Given patient's otherwise satisfactory course and having met physical therapy goals, plan is to discharge patient home on postoperative day 4. Discharge condition/disposition: Patient will be discharged home in stable condition. Discharge medications: Instructions are given on resumption of patient's normal daily medications per primary care recommendation, in addition patient will be prescribed [place]; gabapentin; senna; Duricef; Flexeril Spine Discharge and Recovery Instructions Date of Surgery: 09/21/2023 Diagnosis: 1. L5-S1 spondylosis with stenosis 2. L4-5 spondylosis with stenosis 3. L4-S1 HNP with foraminal stenosis 4. LLE weakness with foot drop, acute 5. Low back pain severe 6. s/p work injury 7. Neurogenic claudication Procedure: Retroperitoneal exposure for L4-L5 and L5-S1 anterior lumbar interbody fusion Insertion of biomechanical device L4-L5, and L5-S1 Medications: See medication list All medication refills should be obtained through your primary care doctor or your clinic spine surgeon. Please discuss prescription refills at your follow up appointment. Do not call the hospital for medication refills. Dressing: Leave your dressing in place for a total of 5 days post operatively. Then you may remove your dressing and leave open to air. Keep the area clean and if not able to keep area clean, then cover with sterile gauze and tape. Showering: You may shower 3 days after your procedure allowing soap and water to run over incision. Do not scrub. Do not soak. Blot dry. Follow up: Please confirm a follow up appointment with your surgeon 3 weeks post operatively. Please make an appointment to follow up with your PCP in 1-2 weeks after surgery for evaluation `3 phase, 3-week plan POST OP WEEKS 1-3 1. Lifting/carrying/pushing/pulling limited to less than 5 pounds. 2. Do not sit for longer than 15 minutes at one time. Get up and walk around. Prolonged sitting is NOT advised. If you lay down, see if you can tolerate laying down on you front (belly side) 3. Walk for periods of 15 minutes = 1 mile but no longer; do it multiple times times each day. 4. Ice your low back after activity. POST OP WEEKS 3-6 1. Lifting limited to less than 20 pounds. 2. Do not sit for longer than 30 minutes at a time. Frequently change positions. Use a sit-to stand workstation or take frequent breaks from sitting if you have returned to work. 3. Walk for 30 minutes each day. If possible, do these three or more times a day POST OP WEEKS 6+ At your 6-week appointment we will give you a physical therapy referral to focus on a core stabilization and strengthening program. You should also work on leg & buttock strengthening, hamstring & quadriceps stretching, and continue a low impact aerobic activity program such as swimming, walking, or riding a stationary bicycle. During the initial 6 weeks after your surgery, you are at the highest risk of re-injuring your spine. You should generally avoid BLTs (bending, lifting and twisting combination motions) and follow the above guidelines to reduce the chance of reinjury. You can anticipate post op appointments in our office at approximately 3 weeks and 6 weeks after your surgery. INCISION CARE: If your incision is not draining you do NOT need to cover it with a dressing. Keep your incision clean, dry and intact. In most cases, we apply skin glue, edward or sutures to the incision at the time of surgery. This will be like a crust or have the appearance of a scab and will fall off in time on its own. The stitches or edward need to be removed at 3 weeks post op appointment. You may begin to shower 3 days after surgery (this allows the glue to dillard well). However, please avoid scrubbing the incision site or peeling off any of the skin glue. This will ensure optimal healing of your incision. Also, during this time avoid soaking the incision area in water - this includes swimming pools, hot tubs or baths. No ointments, lotions or oils on the incision until your surgeon allows. Leave edward, sutures or glue in place. Neurological dysfunction that comes on suddenly can also be a sign of a stroke. Below some common symptoms of a stroke are listed: B - balance difficulty such as sudden onset walking or leaning to one side - NEW E - eye problem such as sudden double vision or trouble seeing on one side - NEW F - Facial weakness or numbness on one side - NEW A - Arm or leg weakness or numbness on one side - NEW S - Slurred speech or difficulty with word finding - NEW T - Time is BRAIN! Call 911 as soon as you recognize these symptoms Diet: Consume a regular diet rich in vegetables and lean protein such as chicken or fish. You should consume in a ratio of approximately 20% fats|40% carbohydrates|40%protein. Vegetables, sweet potatoes, brown rice or quinoa are examples of good carbohydrates. Chips, white bread, cookies and sweets/sugar are examples of bad carbohydrates. Limit your bad carbs, go wild with good carbs. "Life's Simple 7" Guidelines as per [place] [employer] These will help you reclaim your life after surgery and marine steam fitter helper in your recovery, keeping in mind your restrictions. (1) Get Active. Physical activity can help people lose weight, control high blood pressure and cholesterol, feel emotionally better, and sleep better. (2) Control Cholesterol. Avoid a diet high in saturated fat, trans fat, & cholesterol. Limit whole milk & cream, ice cream, butter, egg yolks, processed meats (like sausage and hot dogs), and fatty meats. Choose healthy foods that are low in saturated fat, trans fat and cholesterol which include: Fruits and vegetables, fiber rich grain products (like whole grain pasta and brown rice), lean meat such as chicken, fish, nuts, seeds, and legumes. (3) Eat Better. Eat small portions. Shop at the grocery with a list and do not stray from it. Tips for a healthy diet include: Limit sodium intake to less than 1500mg daily, avoid prepackaged, processed, and fast foods, choose a diet rich in fruits, vegetables, and whole grain, high fiber foods, and limit saturated & cholesterol in your diet. (4) Manage Blood Pressure. If you have high blood pressure, you should have a cuff at home so that you can check your blood pressure regularly. Be sure you have a good cuff. An arm one is generally better than a wrist one. Bring the cuff to a doctor's appointment to validate that the measurements that your cuff are taking are accurate. Take your blood pressure twice daily when you are sitting down and relaxing. Record the numbers in a log and bring this log with you to your doctors' appointments. (5) Lose Weight if your BMI is above 25. A healthy BMI is between 19-25. To calculate Your BMI, you may use a Standard BMI Calculator on the NIH BMI website: <www.nhlbi.nih.gov/guidelines/obesity/BMI/bmicalc.htm>. Weigh oneself daily. If you are overweight, set a goal to lose weight. A pound a week loss if needed is a good target. (6) Reduce Blood Sugar. Limit foods and liquids with "added sugars." (Added sugars include sucrose, fructose, glucose, maltose, dextrose, high fructose corn syrup, corn syrup, concentrated fruit juice and honey). (7) Stop Smoking. If you smoke, quitting smoking is one of the best things that you can do for your health. Smoking increases your risk of heart attack, stroke, and peripheral vascular disease, which is a build-up of plaque in your arteries. Please discard all the cigarettes and lighters in your house. Have a plan for what you will do when you have the urge to smoke. Direct and second- hand smoke shortens your life as well as the lives of your family, friends and others around you. For your health and the health of those around you, please consider quitting! Proper Bending Body Mechanics: Maintain a wide stance with one foot slightly in front of the other. Keep your back straight. Bend utilizing the strength in your hips and knees. Do not bend at the waist. Maintain the lifted object at your waist-level close to your body. Avoid lifting weight that causes immediately pain or pain anywhere in the body afterwards. Smoking/Nicotine If there was ever one thing that you could do to increase your overall health, decrease your risk of cardiovascular problems by about 39% the second you make the choice, it is to STOP SMOKING. Your body's most instant gratification is th second you stop smoking. We have all heard the studies, read the articles but it is true, smoking is extremely bad for your overall health, and moreover it is detrimental to your bone health. Nicotine, IN ANY FORM, kills bone cells, prevents your body from healing fractures, and significantly prolongs healing after surgery. In spine surgery specifically, it increases your risk of not healing your bones to create a fusion and increases your risk of having a revision surgery due to this up to 60%. I know it is hard. I know it feels impossible. But there are ways. Take con trol of your life. We are here to help you through it. And when you are ready, ask us and we can direct you to help if you desire. Use the START Plan to Quit Smoking (please visit the HelpguDXY.org website listed below for more information): S = Set a quit date. Choose a date within the next 2 weeks, so you have enough time to prepare without losing your motivation to quit. If you mainly smoke at work, quit on the weekend, so you have a few days to adjust to the change. T = Tell family, friends, and co-workers that you plan to quit. Let your friends and family in on your plan to quit smoking and tell them you need their support and encouragement to stop. Look for a quit kd who wants to stop smoking as well. You can help each other get through the rough times. A = Anticipate and plan for the challenges you'll face while quitting. Most people who begin smoking again do so within the first 3 months. You can help yourself make it through by preparing ahead for common challenges, such as nicotine withdrawal and cigarette cravings. R = Remove cigarettes and other tobacco products from your home, car, and work. Throw away all your cigarettes (no emergency pack!), lighters, ashtrays, and matches. Wash your clothes and freshen up anything that smells like smoke. Shampoo your car, clean your drapes and carpet, and steam your furniture. T = Talk to your doctor about getting help to quit. Your doctor can prescribe medication to help with withdrawal and suggest other alternatives. If you can't see a doctor, you can get many products over the counter at your local pharmacy or grocery store, including the nicotine patch, nicotine lozenges, and nicotine gum. Resources for Quitting Smoking: <https://www.[place].gov/documents/[facility]/Quit _Tobacco_Resources_for_patients_313480_7.pdf> Supplementation: Take recommended dosages of Vitamin D and Calcium to help fortify your bones and help them to heal. See your health maintenance packet for dosages and recommended levels. DVT/VTE prophylaxis: You will be given compression stockings from the hospital. Wear these daily for the first two weeks after surgery. You may take them off at night. You may be prescribed a medication to help thin your blood. Take this as directed. If you are not prescribed this medication, early and frequent ambulation has been shown to be the best prophylaxis to deep vein thrombosis and sequelae related to this event. Assessment: 1. L5-S1 spondylosis with stenosis 2. L4-5 spondylosis with stenosis 3. L4-S1 HNP with foraminal stenosis 4. LLE weakness with foot drop, acute 5. Low back pain severe 6. s/p work injury 7. Neurogenic claudication Procedures: Retroperitoneal exposure for L4-L5 and L5-S1 anterior lumbar interbody fusion Insertion of biomechanical device L4-L5, and L5-S1 Patient Condition at Discharge: Good Plan - Discharge Summary Discharge Rx Participant: Yes New Discharge Prescriptions: New cefaDROXiL [Duricef] 500 mg PO Q12HR #10 cap Gabapentin [Neurontin] 300 mg PO TID #90 cap HYDROcodone/APAP 10-325MG [[place] 10-325] 1 tab PO Q4-6H PRN #42 tab PRN Reason: Pain Ferrous Sulfate [Feosol] 325 mg PO BID #60 tab Cyclobenzaprine [Flexeril] 5 mg PO TID PRN #40 tablet PRN Reason: Muscle Spasm Sennosides/Docusate Sodium [Senna Plus 8.6-50 mg Softgel] 1 each PO DAILY PRN #20 capsule PRN Reason: Constipation Continue lisinopriL [Zestril] 5 mg PO DAILY buPROPion [Wellbutrin] 100 mg PO DAILY Discharge Medication List buPROPion [Wellbutrin] 100 mg PO DAILY 09/21/23 [History] lisinopriL [Zestril] 5 mg PO DAILY 09/21/23 [History] Cyclobenzaprine [Flexeril] 5 mg PO TID PRN #40 tablet 09/23/23 [Rx] Gabapentin [Neurontin] 300 mg PO TID #90 cap 09/23/23 [Rx] HYDROcodone/APAP 10-325MG [[place] 10-325] 1 tab PO Q4-6H PRN #42 tab 09/23/23 [Rx] Sennosides/Docusate Sodium [Senna Plus 8.6-50 mg Softgel] 1 each PO DAILY PRN #20 capsule 09/23/23 [Rx] cefaDROXiL [Duricef] 500 mg PO Q12HR #10 cap 09/23/23 [Rx] Ferrous Sulfate [Feosol] 325 mg PO BID #60 tab 09/24/23 [Rx] Follow up Appointment(s)/Referral(s): [facility], [NON-STAFF] - 1 Week ([facility] will call you to arrange a visit) Jevon Benson MD [Primary Care Provider] - 1 Week Iglesia Smalls DO [Doctor of Osteopathic Medicine] - 10/07/23 10:15 am Activity/Diet/Wound Care/Special Instructions: Spine Discharge and Recovery Instructions Date of Surgery: 09/21/2023 Diagnosis: lumbar spondylosis with stenosis Procedure: Stage I: L4-5 and L5-S1 Anterior lumbar interbody fusion. Stage II: L4-S1 posteriolateral stabilized fusion with decompression. Medications: See medication list All medication refills should be obtained through your primary care doctor or your clinic spine surgeon. Please discuss prescription refills at your follow up appointment. Do not call the hospital for medication refills. Activity: Encourage ambulation with assist of walker, Up and about 6-8x daily PT/OT daily work on balance, strength and mobility Up in chair with all meals Shower daily Brace: Use brace when up and about, do not wear in bed or shower Dressing: Leave your dressing in place for a total of 3 days post operatively. Then you may remove your dressing and leave open to air. Keep the area clean and if not able to keep area clean, then cover with sterile gauze and tape. Showering: You may shower 3 days after your procedure allowing soap and water to run over incision. Do not scrub. Do not soak. Blot dry. Follow up: Please confirm a follow up appointment with your surgeon 2 weeks post operatively. Please make an appointment to follow up with your PCP in 1-2 weeks after surgery for evaluation 3 phase, 3-week plan POST OP WEEKS 1-3 1. Lifting/carrying/pushing/pulling limited to less than 5 pounds. 2. Do not sit for longer than 15 minutes at one time. Get up and walk around. Prolonged sitting is NOT advised. If you lay down, see if you can tolerate laying down on you front (belly side) 3. Walk for periods of 15 minutes = 1 mile but no longer; do it multiple times times each day. 4. Ice your low back after activity. POST OP WEEKS 3-6 1. Lifting limited to less than 20 pounds. 2. Do not sit for longer than 30 minutes at a time. Frequently change positions. Use a sit-to stand workstation or take frequent breaks from sitting if you have returned to work. 3. Walk for 30 minutes each day. If possible, do these three or more times a day POST OP WEEKS 6+ At your 6-week appointment we will give you a physical therapy referral to focus on a core stabilization and strengthening program. You should also work on leg & buttock strengthening, hamstring & quadriceps stretching, and continue a low impact aerobic activity program such as swimming, walking, or riding a stationary bicycle. During the initial 6 weeks after your surgery, you are at the highest risk of re-injuring your spine. You should generally avoid BLTs (bending, lifting and twisting combination motions) and follow the above guidelines to reduce the chance of reinjury. You can anticipate post op appointments in our office at approximately 3 weeks and 6 weeks after your surgery. INCISION CARE: If your incision is not draining you do NOT need to cover it with a dressing. Keep your incision clean, dry and intact. In most cases, we apply skin glue, edward or sutures to the incision at the time of surgery. This will be like a crust or have the appearance of a scab and will fall off in time on its own. The stitches or edward need to be removed at 3 weeks post op appointment. You may begin to shower 3 days after surgery (this allows the glue to dillard well). However, please avoid scrubbing the incision site or peeling off any of the skin glue. This will ensure optimal healing of your incision. Also, during this time avoid soaking the incision area in water - this includes swimming pools, hot tubs or baths. No ointments, lotions or oils on the incision until your surgeon allows. Leave edward, sutures or glue in place. Neurological dysfunction that comes on suddenly can also be a sign of a stroke. Below some common symptoms of a stroke are listed: B - balance difficulty such as sudden onset walking or leaning to one side - NEW E - eye problem such as sudden double vision or trouble seeing on one side - NEW F - Facial weakness or numbness on one side - NEW A - Arm or leg weakness or numbness on one side - NEW S - Slurred speech or difficulty with word finding - NEW T - Time is BRAIN! Call 911 as soon as you recognize these symptoms Diet: Consume a regular diet rich in vegetables and lean protein such as chicken or fish. You should consume in a ratio of approximately 20% fats|40% carbohydrates|40%protein. Vegetables, sweet potatoes, brown rice or quinoa are examples of good carbohydrates. Chips, white bread, cookies and sweets/sugar are examples of bad carbohydrates. Limit your bad carbs, go wild with good c arbs. "Life's Simple 7" Guidelines as per [place] [employer] These will help you reclaim your life after surgery and marine steam fitter helper in your recovery, keeping in mind your restrictions. (1) Get Active. Physical activity can help people lose weight, control high blood pressure and cholesterol, feel emotionally better, and sleep better. (2) Control Cholesterol. Avoid a diet high in saturated fat, trans fat, & cholesterol. Limit whole milk & cream, ice cream, butter, egg yolks, processed meats (like sausage and hot dogs), and fatty meats. Choose healthy foods that are low in saturated fat, trans fat and cholesterol which include: Fruits and vegetables, fiber rich grain products (like whole grain pasta and brown rice), lean meat such as chicken, fish, nuts, seeds, and legumes. (3) Eat Better. Eat small portions. Shop at the grocery with a list and do not stray from it. Tips for a healthy diet include: Limit sodium intake to less than 1500mg daily, avoid prepackaged, processed, and fast foods, choose a diet rich in fruits, vegetables, and whole grain, high fiber foods, and limit saturated & cholesterol in your diet. (4) Manage Blood Pressure. If you have high blood pressure, you should have a cuff at home so that you can check your blood pressure regularly. Be sure you have a good cuff. An arm one is generally better than a wrist one. Bring the cuff to a doctor's appointment to validate that the measurements that your cuff are taking are accurate. Take your blood pressure twice daily when you are sitting down and relaxing. Record the numbers in a log and bring this log with you to your doctors' appointments. (5) Lose Weight if your BMI is above 25. A healthy BMI is between 19-25. To calculate Your BMI, you may use a Standard BMI Calculator on the NIH BMI website: <www.nhlbi.nih.gov/guidelines/obesity/BMI/bmicalc.htm>. Weigh oneself daily. If you are overweight, set a goal to lose weight. A pound a week loss if needed is a good target. (6) Reduce Blood Sugar. Limit foods and liquids with "added sugars." (Added sugars include sucrose, fructose, glucose, maltose, dextrose, high fructose corn syrup, corn syrup, concentrated fruit juice and honey). (7) Stop Smoking. If you smoke, quitting smoking is one of the best things that you can do for your health. Smoking increases your risk of heart attack, stroke, and peripheral vascular disease, which is a build-up of plaque in your arteries. Please discard all the cigarettes and lighters in your house. Have a plan for what you will do when you have the urge to smoke. Direct and second- hand smoke shortens your life as well as the lives of your family, friends and others around you. For your health and the health of those around you, please consider quitting! Proper Bending Body Mechanics: Maintain a wide stance with one foot slightly in front of the other. Keep your back straight. Bend utilizing the strength in your hips and knees. Do not bend at the waist. Maintain the lifted object at your waist-level close to your body. Avoid lifting weight that causes immediately pain or pain anywhere in the body afterwards. Smoking/Nicotine If there was ever one thing that you could do to increase your overall health, decrease your risk of cardiovascular problems by about 39% the second you make the choice, it is to STOP SMOKING. Your body's most instant gratification is the second you stop smoking. We have all heard the studies, read the articles but it is true, smoking is extremely bad for your overall health, and moreover it is detrimental to your bone health. Nicotine, IN ANY FORM, kills bone cells, prevents your body from healing fractures, and significantly prolongs healing after surgery. In spine surgery specifically, it increases your risk of not healing your bones to create a fusio n and increases your risk of having a revision surgery due to this up to 60%. I know it is hard. I know it feels impossible. But there are ways. Take control of your life. We are here to help you through it. And when you are ready, ask us and we can direct you to help if you desire. Use the START Plan to Quit Smoking (please visit the Helpguide.org website listed below for more information): S = Set a quit date. Choose a date within the next 2 weeks, so you have enough time to prepare without losing your motivation to quit. If you mainly smoke at work, quit on the weekend, so you have a few days to adjust to the change. T = Tell family, friends, and co-workers that you plan to quit. Let your friends and family in on your plan to quit smoking and tell them you need their support and encouragement to stop. Look for a quit kd who wants to stop smoking as well. You can help each other get through the rough times. A = Anticipate and plan for the challenges you'll face while quitting. Most people who begin smoking again do so within the first 3 months. You can help yourself make it through by preparing ahead for common challenges, such as nicotine withdrawal and cigarette cravings. R = Remove cigarettes and other tobacco products from your home, car, and work. Throw away all your cigarettes (no emergency pack!), lighters, ashtrays, and matches. Wash your clothes and freshen up anything that smells like smoke. Shampoo your car, clean your drapes and carpet, and steam your furniture. T = Talk to your doctor about getting help to quit. Your doctor can prescribe medication to help with withdrawal and suggest other alternatives. If you can't see a doctor, you can get many products over the counter at your local pharmacy or grocery store, including the nicotine patch, nicotine lozenges, and nicotine gum. Resources for Quitting Smoking: <https://www.[place].gov/documents/[facility]/Quit_Tobacco_Resources_for_patients_313 480_7.pdf> Supplementation: Take recommended dosages of Vitamin D and Calcium to help fortify your bones and help them to heal. See your health maintenance packet for dosages and recommended levels. DVT/VTE prophylaxis: You will be given compression stockings from the hospital. Wear these daily for the first two weeks after surgery. You may take them off at night. You may be prescribed a medication to help thin your blood. Take this as directed. If you are not prescribed this medication, early and frequent ambulation has been shown to be the best prophylaxis to deep vein thrombosis and sequelae related to this event. Discharge Disposition: HOME WITH HOME HEALTH SERVICES
== END 2023-09-25 11:52 | disposition home health service (06) | DRG 455 ==
LOC: OR 05:45 → 4SSUR 05:46 → OR 05:46 → 4SSUR 14:35
PROVIDERS: ADMIT Orthopaedic Surgery; ATTEND Orthopaedic Surgery
PROC: 0SG30A0 Fusion of Lumbosacral Joint with Interbody Fusion Device, Anterior Approach, Anterior Column, Open Approach (ICD-10-PCS; 2023-09-21)
PROC: 0SG3071 Fusion of Lumbosacral Joint with Autologous Tissue Substitute, Posterior Approach, Posterior Column, Open Approach (ICD-10-PCS; 2023-09-21)
PROC: 0ST20ZZ Resection of Lumbar Vertebral Disc, Open Approach (ICD-10-PCS; 2023-09-21)
PROC: 0ST40ZZ Resection of Lumbosacral Disc, Open Approach (ICD-10-PCS; 2023-09-21)
PROC: 01NB0ZZ Release Lumbar Nerve, Open Approach (ICD-10-PCS; 2023-09-21)
PROC: 01NR0ZZ Release Sacral Nerve, Open Approach (ICD-10-PCS; 2023-09-21)
PROC: 00NY0ZZ Release Lumbar Spinal Cord, Open Approach (ICD-10-PCS; 2023-09-21)
PROC: 4A11X4G Monitoring of Peripheral Nervous Electrical Activity, Intraoperative, External Approach (ICD-10-PCS; 2023-09-21)
PROC: 02HV33Z Insertion of Infusion Device into Superior Vena Cava, Percutaneous Approach (ICD-10-PCS; 2023-09-21)
PROC: 4A133B1 Monitoring of Arterial Pressure, Peripheral, Percutaneous Approach (ICD-10-PCS; 2023-09-21)
PROC: 4A133J1 Monitoring of Arterial Pulse, Peripheral, Percutaneous Approach (ICD-10-PCS; 2023-09-21)
PROC: 03HY32Z Insertion of Monitoring Device into Upper Artery, Percutaneous Approach (ICD-10-PCS; 2023-09-21)
PROC: 0SG00A0 Fusion of Lumbar Vertebral Joint with Interbody Fusion Device, Anterior Approach, Anterior Column, Open Approach (ICD-10-PCS; principal; 2023-09-21 07:30)
PROC: 0SG0071 Fusion of Lumbar Vertebral Joint with Autologous Tissue Substitute, Posterior Approach, Posterior Column, Open Approach (ICD-10-PCS; 2023-09-21 07:30)
DX: M51.17 Intervertebral disc disorders with radiculopathy, lumbosacral region (principal); M48.07 Spinal stenosis, lumbosacral region; M21.372 Foot drop, left foot; K59.00 Constipation, unspecified; F41.9 Anxiety disorder, unspecified; M47.27 Other spondylosis with radiculopathy, lumbosacral region; F17.210 Nicotine dependence, cigarettes, uncomplicated; I83.93 Asymptomatic varicose veins of bilateral lower extremities; F90.9 Attention-deficit hyperactivity disorder, unspecified type; M48.062 Spinal stenosis, lumbar region with neurogenic claudication; M25.78 Osteophyte, vertebrae; F32.A Depression, unspecified; I10 Essential (primary) hypertension; M19.90 Unspecified osteoarthritis, unspecified site; Z79.899 Other long term (current) drug therapy
CPT/HCPCS: 72100; 72131; 85025